=== PATIENT | female | born 1950 | race Two or more races ===

== ENCOUNTER → 2016-10-06 | Day surgery (SDC) | payer OTHER ==
[2016-10-05 12:41] LABS: Basophils # (auto) 0.1 uL; Basophils % (auto) 0.9 % (0.0-2.0); Eosinophils # (auto) 0.6 uL; Eosinophils % (auto) 6.1 % (0.0-7.0); Hematocrit 40.8 % (36.0-46.0); Hemoglobin 13.4 g/dL (12.2-16.2); Lymphocytes % (auto) 21.8 % (10.0-50.0); Mean Corpuscular Hemoglobin 30.1 pg (28.0-32.0); Mean Corpuscular Hgb Conc. 32.7 g/dL (32.0-36.0); Mean Corpuscular Volume 92.2 fL (80.0-100.0); Mean Platelet Volume 11.3 fL (7.4-10.4); Monocytes # (auto) 0.6 uL; Monocytes % (auto) 6.8 % (0.0-12.0); Neutrophils # (auto) 5.8 uL; Neutrophils % (auto) 64.4 % (37.0-80.0); Platelet Count (auto) 232 10^3/uL (140-450); Red Cell Distribution Width 13.3 % (11.6-16.0); White Blood Cell 9.1 10^3/uL (4.4-10.8)
[2016-10-05 12:57] LABS: INR 0.95 (0.9-1.15); Partial Thromboplastin Time 25.9 sec (22.64-33.71); Prothrombin Time 10.3 sec (9.37-12.3)
[2016-10-05 14:23] LABS: Albumin 3.4 g/dL (3.4-5.0); BUN/Creatinine Ratio 19.1; Bilirubin, Total 0.4 mg/dL (0.2-1.0); Calcium 9.2 mg/dL (8.5-10.1); Total Protein 7.5 g/dL (6.4-8.2)
[~2016-10-06] VITALS: Ht 160 cm; Wt 90.7 kg
[~2016-10-06] MED LIST: BUPIVACAINE 0.25% INJ 50ML VIAL ONE; BUPIVACAINE W/ EPINEPH 0.25% INJ 50ML MDV ONE; ESCI10TA PO; ESOM20CA PO; GLYCOPYRROLATE 0.2 MG/ML 1ML VIAL ONE; HYDROmorphone HCL 2 MG/ML VL IV PRN; KETOROLAC TROMETH 30 MG/ML 1ML VIAL IV ONE; LABETALOL HCL 5 MG/ML 4ML SYRINGE IV ONE; LIDOCAINE 1% HCL (LOCAL ANESTH.) INJ 20ML MDV ONE; LIDOCAINE W/ EPINEPHRINE 1 % INJ 30ML ONE; LISI-285 PO; MEPERIDINE HCL (50 MG/ML) 1 ML VIAL ONE; METOCLOPRAMIDE HCL 5MG/ml INJ 2ml VIAL IV ONE; MIDAZOLAM HCL 1MG/1ML-2 ML VIAL ONE; NEOSTIGMINE 1 MG/ML INJ (10mg/10ML VIAL) ONE; NIFE30TA76 PO; NOR5T PO; PROPOFOL 10 MG/ML 20 ML IV ONE; ROCURONIUM 10MG/ML 10ML VIAL IV ONE; SODIUM CHLORIDE LOCK 20 ML ONE; ceFAZolin 1GM/50ML D5W 100 ML IV ONE; fentaNYL CITRATE 100 MCG/2 ML VL ONE
[2016-10-06 14:30] VITALS: BP 137/71
== END | disposition home or self-care (01) ==
LOC: SUR 10:25
PROVIDERS: ATTEND Orthopaedic Surgery
DX: S42.291A Other displaced fracture of upper end of right humerus, initial encounter for closed fracture (principal); G58.8 Other specified mononeuropathies; E66.9 Obesity, unspecified; Z98.84 Bariatric surgery status; X58.XXXA Exposure to other specified factors, initial encounter; Y93.9 Activity, unspecified; Y92.9 Unspecified place or not applicable; Y99.9 Unspecified external cause status
CPT/HCPCS: 23605; 36415; 80053; 85025; 85610; 85730; 86850; 86900; 86901; J0690; J1885; J2175; J2250; J2704; J3010; 73030; 76000; J2001; J3490

== ENCOUNTER → 2016-11-04 | Outpatient (CLI) | payer OTHER ==
[~2016-11-04] MED LIST changes: -BUPIVACAINE 0.25% INJ 50ML VIAL ONE; -BUPIVACAINE W/ EPINEPH 0.25% INJ 50ML MDV ONE; -GLYCOPYRROLATE 0.2 MG/ML 1ML VIAL ONE; -HYDROmorphone HCL 2 MG/ML VL IV PRN; -KETOROLAC TROMETH 30 MG/ML 1ML VIAL IV ONE; -LABETALOL HCL 5 MG/ML 4ML SYRINGE IV ONE; -LIDOCAINE 1% HCL (LOCAL ANESTH.) INJ 20ML MDV ONE; -LIDOCAINE W/ EPINEPHRINE 1 % INJ 30ML ONE; -MEPERIDINE HCL (50 MG/ML) 1 ML VIAL ONE; -METOCLOPRAMIDE HCL 5MG/ml INJ 2ml VIAL IV ONE; -MIDAZOLAM HCL 1MG/1ML-2 ML VIAL ONE; -NEOSTIGMINE 1 MG/ML INJ (10mg/10ML VIAL) ONE; -PROPOFOL 10 MG/ML 20 ML IV ONE; -ROCURONIUM 10MG/ML 10ML VIAL IV ONE; -SODIUM CHLORIDE LOCK 20 ML ONE; -ceFAZolin 1GM/50ML D5W 100 ML IV ONE; -fentaNYL CITRATE 100 MCG/2 ML VL ONE
== END | disposition home or self-care (01) ==
LOC: LAB 10:55
PROVIDERS: ATTEND Internal Medicine Gastroenterology
DX: B18.2 Chronic viral hepatitis C (principal)
CPT/HCPCS: 87522

== ENCOUNTER → 2016-12-28 | Outpatient (CLI) | payer OTHER ==
[~2016-12-28] MED LIST changes: +HYDR-4663 PO; -NOR5T PO
[2016-12-28 11:24] LABS: Basophils # (auto) 0.1 uL; Basophils % (auto) 1.5 % (0.0-2.0); CONDITION Y; Eosinophils # (auto) 0.4 uL; Eosinophils % (auto) 4.5 % (0.0-7.0); Hematocrit 39.4 % (36.0-46.0); Hemoglobin 13.9 g/dL (12.2-16.2); Lymphocytes # (auto) 2.3 uL; Lymphocytes % (auto) 27.6 % (10.0-50.0); Mean Corpuscular Hemoglobin 31.7 pg (28.0-32.0); Mean Corpuscular Hgb Conc. 35.2 g/dL (32.0-36.0); Mean Corpuscular Volume 90.2 fL (80.0-100.0); Mean Platelet Volume 11.4 fL (7.4-10.4); Monocytes # (auto) 0.7 uL; Monocytes % (auto) 7.9 % (0.0-12.0); Neutrophils % (auto) 58.5 % (37.0-80.0); Platelet Count (auto) 230 10^3/uL (140-450); White Blood Cell 8.5 10^3/uL (4.4-10.8)
[2016-12-28 11:59] LABS: INR 0.98 (0.9-1.15); Partial Thromboplastin Time 26.7 sec (22.64-33.71); Prothrombin Time 10.7 sec (9.37-12.3)
== END | disposition home or self-care (01) ==
LOC: LAB 10:41
PROVIDERS: ATTEND Internal Medicine Gastroenterology
DX: B18.2 Chronic viral hepatitis C (principal)
CPT/HCPCS: 36415; 85025; 85610; 85730

== ENCOUNTER → 2016-12-31 | Outpatient (CLI) | payer OTHER ==
[2016-12-31 13:47] LABS: Albumin 3.8 g/dL (3.4-5.0); Calcium 9.1 mg/dL (8.5-10.1)
[2016-12-31 13:49] LABS: BUN/Creatinine Ratio 15.8; Bilirubin, Total 0.4 mg/dL (0.2-1.0); Total Protein 7.7 g/dL (6.4-8.2)
== END | disposition home or self-care (01) ==
LOC: LAB 13:13
PROVIDERS: ATTEND Internal Medicine Gastroenterology
DX: B18.2 Chronic viral hepatitis C (principal)
CPT/HCPCS: 36415; 80053

== ENCOUNTER → 2017-03-16 | Outpatient (CLI) | payer OTHER ==
[2017-03-16 11:23] LABS: Basophils # (auto) 0.1 uL; Basophils % (auto) 0.8 % (0.0-2.0); Eosinophils # (auto) 0.4 uL; Hematocrit 40.8 % (36.0-46.0); Lymphocytes # (auto) 1.8 uL; Lymphocytes % (auto) 17.7 % (10.0-50.0); Mean Corpuscular Hemoglobin 31.9 pg (28.0-32.0); Mean Corpuscular Hgb Conc. 34.4 g/dL (32.0-36.0); Mean Corpuscular Volume 92.7 fL (80.0-100.0); Mean Platelet Volume 9.9 fL (6.9-10.8); Monocytes # (auto) 0.9 uL; Monocytes % (auto) 8.6 % (0.0-12.0); Neutrophils % (auto) 68.9 % (37.0-80.0); Platelet Count (auto) 183 10^3/uL (140-450); Red Cell Distribution Width 13.6 % (11.8-14.3); White Blood Cell 10.2 10^3/uL (4.4-10.8)
[2017-03-16 11:44] LABS: Albumin 3.8 g/dL (3.4-5.0); BUN/Creatinine Ratio 15.6; Bilirubin, Total 0.7 mg/dL (0.2-1.0); Calcium 9.2 mg/dL (8.5-10.1); Potassium 3.9 mmol/L (3.5-5.1); Total Protein 7.9 g/dL (6.4-8.2)
== END | disposition home or self-care (01) ==
LOC: LAB 10:56
PROVIDERS: ATTEND Internal Medicine Gastroenterology
DX: B18.2 Chronic viral hepatitis C (principal)
CPT/HCPCS: 36415; 80053; 85025; 87522

== ENCOUNTER → 2017-07-13 | Outpatient (CLI) | payer OTHER ==
[~2017-07-13] MED LIST changes: -HYDR-4663 PO; +HYDR-4683 PO
[2017-07-13 11:23] LABS: Basophils # (auto) 0.1 uL; Basophils % (auto) 0.9 % (0.0-2.0); Eosinophils # (auto) 0.3 uL; Hematocrit 45.3 % (36.0-46.0); Hemoglobin 15.2 g/dL (12.2-16.2); Lymphocytes # (auto) 1.9 uL; Lymphocytes % (auto) 21.1 % (10.0-50.0); Mean Corpuscular Hemoglobin 32.7 pg (28.0-32.0); Mean Corpuscular Hgb Conc. 33.7 g/dL (32.0-36.0); Mean Corpuscular Volume 97.2 fL (80.0-100.0); Monocytes # (auto) 0.5 uL; Neutrophils # (auto) 6.2 uL; Platelet Count (auto) 183 10^3/uL (140-450); Red Blood Cells 4.66 10^6/uL (4.0-5.20); Red Cell Distribution Width 14.5 % (11.8-14.3)
[2017-07-13 11:50] LABS: Albumin 3.7 g/dL (3.4-5.0); BUN/Creatinine Ratio 14.1; Bilirubin, Total 0.6 mg/dL (0.2-1.0); Calcium 8.9 mg/dL (8.5-10.1); Potassium 4.1 mmol/L (3.5-5.1); Total Protein 7.6 g/dL (6.4-8.2)
== END | disposition home or self-care (01) ==
LOC: LAB 10:28
PROVIDERS: ATTEND Internal Medicine
DX: Z00.01 Encounter for general adult medical examination with abnormal findings (principal); Z12.11 Encounter for screening for malignant neoplasm of colon; I10 Essential (primary) hypertension; E78.5 Hyperlipidemia, unspecified
CPT/HCPCS: 36415; 80053; 80061; 82306; 84443; 85025

== ENCOUNTER → 2017-07-23 | Outpatient (CLI) | payer OTHER | END | disposition home or self-care (01) | LOC: LAB 06:58 | PROVIDERS: ATTEND Internal Medicine | DX: Z12.11 Encounter for screening for malignant neoplasm of colon (principal); I10 Essential (primary) hypertension; E78.5 Hyperlipidemia, unspecified | CPT/HCPCS: 82270 ==

== ENCOUNTER → 2017-08-18 | Outpatient (CLI) | payer OTHER | END | disposition home or self-care (01) | LOC: LAB 14:36 | PROVIDERS: ATTEND Internal Medicine | DX: K72.10 Chronic hepatic failure without coma (principal) | CPT/HCPCS: 82270 ==

== ENCOUNTER → 2017-09-30 | Outpatient (CLI) | payer OTHER | END | disposition home or self-care (01) | LOC: LAB 15:49 | PROVIDERS: ATTEND Internal Medicine Gastroenterology | DX: R10.9 Unspecified abdominal pain (principal); I10 Essential (primary) hypertension; E78.5 Hyperlipidemia, unspecified | CPT/HCPCS: 82784; 83516; 86255; 87522 ==

== ENCOUNTER → 2017-10-04 | Outpatient (CLI) | payer OTHER | END | disposition home or self-care (01) | LOC: LAB 12:34 | PROVIDERS: ATTEND Internal Medicine Gastroenterology | DX: R10.9 Unspecified abdominal pain (principal); E78.5 Hyperlipidemia, unspecified | CPT/HCPCS: 82705; 87045; 87493; 87899 ==

== ENCOUNTER → 2018-01-14 | Outpatient (CLI) | payer OTHER, MEDICARE | END | disposition home or self-care (01) | LOC: LAB 10:47 | PROVIDERS: ATTEND Internal Medicine | DX: Z12.11 Encounter for screening for malignant neoplasm of colon (principal); R73.01 Impaired fasting glucose; E56.9 Vitamin deficiency, unspecified; I10 Essential (primary) hypertension; E78.5 Hyperlipidemia, unspecified; Z88.5 Allergy status to narcotic agent; Z88.8 Allergy status to other drugs, medicaments and biological substances | CPT/HCPCS: 36415; 82607; 83036 ==

== ENCOUNTER 2018-10-05 08:31 | Day surgery (SDC) | payer OTHER, MEDICAID ==
[2018-10-04 09:10] LABS: Basophils # (auto) 0.1 uL; Basophils % (auto) 1.4 % (0.0-2.0); Eosinophils # (auto) 0.2 uL; Eosinophils % (auto) 1.7 % (0.0-7.0); Hematocrit 42.3 % (36.0-46.0); Hemoglobin 14.1 g/dL (12.2-16.2); Lymphocytes % (auto) 20.2 % (10.0-50.0); Mean Corpuscular Hemoglobin 33.1 pg (28.0-32.0); Mean Corpuscular Hgb Conc. 33.3 g/dL (32.0-36.0); Mean Corpuscular Volume 99.3 fL (80.0-100.0); Monocytes # (auto) 0.8 uL; Monocytes % (auto) 8.6 % (0.0-12.0); Neutrophils # (auto) 6.6 uL; Neutrophils % (auto) 68.1 % (37.0-80.0); Platelet Count (auto) 238 10^3/uL (140-450); Red Blood Cells 4.26 10^6/uL (4.0-5.20); Red Cell Distribution Width 14.3 % (11.8-14.3); White Blood Cell 9.7 10^3/uL (4.4-10.8)
[2018-10-04 09:32] LABS: Albumin 3.3 g/dL (3.4-5.0); Potassium 4.4 mmol/L (3.5-5.1)
[2018-10-04 09:36] LABS: BUN/Creatinine Ratio 10.2; Bilirubin, Total 0.6 mg/dL (0.2-1.0); Calcium 8.7 mg/dL (8.5-10.1); Total Protein 6.9 g/dL (6.4-8.2)
[2018-10-04 09:46] LABS: INR 1.01 (0.9-1.15); Partial Thromboplastin Time 22.4 sec (23.78-33.04); Prothrombin Time 10.2 sec (9.27-12.13)
[~2018-10-05] VITALS: Ht 160 cm; Wt 79.4 kg
[~2018-10-05 08:31] MED LIST changes: -ESOM20CA PO; -HYDR-4683 PO; +MELO1TAB73 PO; +TRAZ-181 PO
[2018-10-05] MEDS ORDERED: LIDOCAINE 2%HCL (LOCAL ANESTH.) INJ 20ML MDV ONE (10:44)
[2018-10-05] MEDS ORDERED: IOHEXOL 300 MG/ML 75ml BOTTLE ONE ×2 (10:44→10:55)
[2018-10-05] MEDS ORDERED: methylPREDNISolone SOD SUCC 125 MG/2 ML VL ONE (10:50)
[2018-10-05] MEDS ORDERED: diphenhdrAMINE HCL 50 MG/1 ML VL ONE (10:50)
[2018-10-05] MEDS ORDERED: ANGIOMAX 250 MG VIAL IV ONE (10:50)
[2018-10-05] MEDS ORDERED: MIDAZOLAM HCL 1MG/1ML-2 ML VIAL ONE (10:51)
[2018-10-05] MEDS ORDERED: SODIUM CHL 0.9% 50 ML ONE (10:51)
[2018-10-05] MEDS ORDERED: FAMOTIDINE (10MG/ML) 2ML VL IV ONE ×2 (10:51→11:00)
[2018-10-05] MEDS ORDERED: fentaNYL CITRATE 100 MCG/2 ML VL ONE (10:51)
== END 2018-10-05 14:00 | disposition home or self-care (01) ==
LOC: CATH 08:31
PROVIDERS: ATTEND Internal Medicine
DX: I25.10 Atherosclerotic heart disease of native coronary artery without angina pectoris (principal); I10 Essential (primary) hypertension; J43.9 Emphysema, unspecified; E78.5 Hyperlipidemia, unspecified; I25.2 Old myocardial infarction; Z88.5 Allergy status to narcotic agent; Z91.013 Allergy to seafood; Z91.041 Radiographic dye allergy status; Z79.82 Long term (current) use of aspirin; Z79.01 Long term (current) use of anticoagulants; Z79.899 Other long term (current) drug therapy; Z87.891 Personal history of nicotine dependence; Z82.49 Family history of ischemic heart disease and other diseases of the circulatory system
CPT/HCPCS: 36415; 80053; 85025; 85610; 85730; 93458; 93571; A6257; C1760; C1894; J0583; J1200; J1644; J2250; J2930; J3010; J3490; J7030; 99152; 99153

== ENCOUNTER → 2018-11-24 | Outpatient (CLI) | payer OTHER, MEDICAID ==
[~2018-11-24] MED LIST changes: +FAM20T PO; +LISI-275 PO; -LISI-285 PO; -MELO1TAB73 PO; -TRAZ-181 PO; +TRAZ50TA2 PO
[2018-11-24 12:34] LABS: Basophils # (auto) 0.1 uL; Basophils % (auto) 0.8 % (0.0-2.0); Eosinophils # (auto) 0.3 uL; Eosinophils % (auto) 2.1 % (0.0-7.0); Hematocrit 38.8 % (36.0-46.0); Lymphocytes # (auto) 2.5 uL; Lymphocytes % (auto) 17.5 % (10.0-50.0); Mean Corpuscular Hemoglobin 33.5 pg (28.0-32.0); Mean Corpuscular Hgb Conc. 33.5 g/dL (32.0-36.0); Monocytes # (auto) 1.1 uL; Monocytes % (auto) 7.6 % (0.0-12.0); Neutrophils # (auto) 10.1 uL; Nucleated Red Blood Cells % 0.1 %; Platelet Count (auto) 274 10^3/uL (140-450); Red Blood Cells 3.88 10^6/uL (4.0-5.20); Red Cell Distribution Width 13.8 % (11.8-14.3)
[2018-11-24 13:13] LABS: Albumin 3.1 g/dL (3.4-5.0); Calcium 8.9 mg/dL (8.5-10.1); Potassium 3.7 mmol/L (3.5-5.1)
[2018-11-24 13:16] LABS: BUN/Creatinine Ratio 7.2; Bilirubin, Total 0.5 mg/dL (0.2-1.0); Total Protein 6.9 g/dL (6.4-8.2)
[2018-11-24 22:40] LABS: Urine Bacteria FEW /hpf (None Seen); Urine Blood Negative /uL (Negative); Urine Hyaline Cast FEW /lpf (0 - 2); Urine Mucus FEW (None Seen); Urine Specific Gravity 1.012 (1.001-1.035); Urine WBC 13 /hpf (0 - 5)
== END | disposition home or self-care (01) ==
LOC: LAB 12:06
PROVIDERS: ATTEND Internal Medicine
DX: M54.9 Dorsalgia, unspecified (principal); I10 Essential (primary) hypertension
CPT/HCPCS: 36415; 80053; 81001; 85025

== ENCOUNTER → 2018-11-30 | Outpatient (CLI) | payer OTHER, MEDICAID ==
[2018-11-30 13:30] LABS: Basophils # (auto) 0.1 uL; Basophils % (auto) 0.6 % (0.0-2.0); Eosinophils # (auto) 0.4 uL; Hematocrit 39.2 % (36.0-46.0); Hemoglobin 12.7 g/dL (12.2-16.2); Lymphocytes # (auto) 2.1 uL; Lymphocytes % (auto) 17.4 % (10.0-50.0); Mean Corpuscular Hemoglobin 32.5 pg (28.0-32.0); Mean Corpuscular Hgb Conc. 32.4 g/dL (32.0-36.0); Mean Corpuscular Volume 100.4 fL (80.0-100.0); Monocytes # (auto) 0.7 uL; Neutrophils # (auto) 8.8 uL; Platelet Count (auto) 252 10^3/uL (140-450); Red Blood Cells 3.91 10^6/uL (4.0-5.20); White Blood Cell 12.1 10^3/uL (4.4-10.8)
[2018-11-30 14:06] LABS: Urine Bacteria NONE SEEN /hpf (None Seen); Urine Blood Negative /uL (Negative); Urine Hyaline Cast FEW /lpf (0 - 2); Urine WBC 1 /hpf (0 - 5)
[2018-11-30 14:24] LABS: Potassium 4.1 mmol/L (3.5-5.1)
[2018-11-30 14:32] LABS: BUN/Creatinine Ratio 6.7; Bilirubin, Total 0.5 mg/dL (0.2-1.0); Calcium 8.8 mg/dL (8.5-10.1); Total Protein 6.5 g/dL (6.4-8.2)
== END | disposition home or self-care (01) ==
LOC: LAB 13:00
PROVIDERS: ATTEND Internal Medicine
DX: N39.0 Urinary tract infection, site not specified (principal); R53.83 Other fatigue
CPT/HCPCS: 36415; 80053; 81001; 85025; 87086

== ENCOUNTER → 2018-12-08 | Outpatient (CLI) | payer OTHER, MEDICAID ==
[2018-12-08 14:24] LABS: Basophils # (auto) 0.1 uL; Eosinophils # (auto) 0.3 uL; Eosinophils % (auto) 2.8 % (0.0-7.0); Lymphocytes # (auto) 2.3 uL; Lymphocytes % (auto) 20.6 % (10.0-50.0); Mean Corpuscular Hemoglobin 33.5 pg (28.0-32.0); Mean Corpuscular Hgb Conc. 33.3 g/dL (32.0-36.0); Mean Corpuscular Volume 100.8 fL (80.0-100.0); Monocytes # (auto) 0.8 uL; Monocytes % (auto) 7.7 % (0.0-12.0); Neutrophils # (auto) 7.5 uL; Neutrophils % (auto) 67.9 % (37.0-80.0); Platelet Count (auto) 203 10^3/uL (140-450); Red Blood Cells 3.86 10^6/uL (4.0-5.20)
[2018-12-08 14:39] LABS: Alanine Aminotransferase 41 U/L (13-56); Aspartate Aminotransferase 49 U/L (15-37)
== END | disposition home or self-care (01) ==
LOC: LAB 14:00
PROVIDERS: ATTEND Internal Medicine
DX: D72.829 Elevated white blood cell count, unspecified (principal); R53.83 Other fatigue
CPT/HCPCS: 36415; 84450; 84460; 85025

== ENCOUNTER → 2018-12-09 | Outpatient (CLI) | payer OTHER, MEDICAID | END | disposition home or self-care (01) | LOC: LAB 13:17 | PROVIDERS: ATTEND Nurse Practitioner Family | DX: N39.0 Urinary tract infection, site not specified (principal) | CPT/HCPCS: 87086 ==

== ENCOUNTER 2019-01-18 16:27 | Emergency (ER) | payer OTHER ==
[~2019-01-18] VITALS: Ht 160 cm; Wt 79.4 kg
[~2019-01-18 16:27] MED LIST changes: +ATO40T PO; +NITR100C6 PO; +OMEP20TA PO; +TIOTCAP IN
[2019-01-18 17:32] LABS: Basophils # (auto) 0.1 uL; Basophils % (auto) 1.2 % (0.0-2.0); Eosinophils # (auto) 0.4 uL; Eosinophils % (auto) 3.6 % (0.0-7.0); Hematocrit 36.5 % (36.0-46.0); Hemoglobin 12.2 g/dL (12.2-16.2); Lymphocytes # (auto) 1.8 uL; Lymphocytes % (auto) 16.2 % (10.0-50.0); Mean Corpuscular Hemoglobin 33.8 pg (28.0-32.0); Mean Corpuscular Hgb Conc. 33.5 g/dL (32.0-36.0); Mean Corpuscular Volume 100.8 fL (80.0-100.0); Monocytes # (auto) 0.9 uL; Monocytes % (auto) 8.3 % (0.0-12.0); Neutrophils # (auto) 7.8 uL; Neutrophils % (auto) 70.7 % (37.0-80.0); Platelet Count (auto) 179 10^3/uL (140-450); Red Blood Cells 3.63 10^6/uL (4.0-5.20); Red Cell Distribution Width 14.3 % (11.8-14.3); White Blood Cell 11.1 10^3/uL (4.4-10.8)
[2019-01-18 17:41] LABS: BUN/Creatinine Ratio 6.1; Calcium 8.5 mg/dL (8.5-10.1); Magnesium 1.7 mg/dL (1.6-2.6)
[2019-01-18 17:46] LABS: Lactic Acid w/Reflex 2.2 mmol/L (0.4-2.0)
[2019-01-18 18:10] LABS: Bilirubin, Total 0.7 mg/dL (0.2-1.0); Total Protein 6.2 g/dL (6.4-8.2)
[2019-01-18 22:28] LABS: Urine Bacteria NONE SEEN /hpf (None Seen); Urine Blood Negative /uL (Negative); Urine Hyaline Cast FEW /lpf (0 - 2); Urine Specific Gravity 1.009 (1.001-1.035); Urine WBC 20 /hpf (0 - 5)
[2019-01-19 02:56] VITALS: BP 153/63
[2019-01-19] MEDS ORDERED: MORPHINE SULFATE 4 MG/ML SYR/VIAL IV ONE (04:15)
[2019-01-19] MEDS ORDERED: SODIUM CHLORIDE 0.9% 1,000 ML IV ONE (04:15)
[2019-01-19] MEDS ORDERED: ONDANSETRON HCL 4 MG/2 ML VIAL IV ONE (04:15)
[2019-01-19] MEDS ORDERED: cefTRIAXone 1GM/50ML D5W 50 ML IV ONE (05:00)
== END 2019-01-19 06:50 | disposition home or self-care (01) ==
LOC: ER 16:30
DX: R10.9 Unspecified abdominal pain (principal); J44.9 Chronic obstructive pulmonary disease, unspecified; M10.9 Gout, unspecified; E78.5 Hyperlipidemia, unspecified; I10 Essential (primary) hypertension; I25.2 Old myocardial infarction; Z90.49 Acquired absence of other specified parts of digestive tract; Z98.61 Coronary angioplasty status; Z88.5 Allergy status to narcotic agent; Z88.8 Allergy status to other drugs, medicaments and biological substances; Z91.013 Allergy to seafood; Z79.899 Other long term (current) drug therapy; Z98.890 Other specified postprocedural states
CPT/HCPCS: 36415; 74176; 80053; 81001; 83605; 83735; 84484; 85025; 87040; 93005; 96365; 96375; 99284; J0696; J2270; J2405; J7030

== ENCOUNTER → 2019-01-27 | Outpatient (CLI) | payer OTHER ==
[2019-01-27 15:00] LABS: Basophils # (auto) 0.1 uL; Basophils % (auto) 0.9 % (0.0-2.0); Eosinophils # (auto) 0.5 uL; Eosinophils % (auto) 5.4 % (0.0-7.0); Hematocrit 38.2 % (36.0-46.0); Hemoglobin 12.5 g/dL (12.2-16.2); Lymphocytes # (auto) 1.3 uL; Lymphocytes % (auto) 14.5 % (10.0-50.0); Mean Corpuscular Hemoglobin 32.8 pg (28.0-32.0); Mean Corpuscular Hgb Conc. 32.8 g/dL (32.0-36.0); Monocytes # (auto) 0.7 uL; Monocytes % (auto) 7.6 % (0.0-12.0); Neutrophils # (auto) 6.5 uL; Neutrophils % (auto) 71.6 % (37.0-80.0); Platelet Count (auto) 163 10^3/uL (140-450); Red Blood Cells 3.82 10^6/uL (4.0-5.20)
[2019-01-27 16:30] LABS: Urine Bacteria NONE SEEN /hpf (None Seen); Urine Blood Negative /uL (Negative); Urine Specific Gravity 1.016 (1.001-1.035); Urine WBC 24 /hpf (0 - 5)
== END | disposition home or self-care (01) ==
LOC: LAB 14:42
PROVIDERS: ATTEND Internal Medicine
DX: M25.50 Pain in unspecified joint (principal)
CPT/HCPCS: 36415; 81001; 84550; 85025; 85652; 86200; 86431

== ENCOUNTER 2019-04-26 12:20 | Inpatient (IN) | payer OTHER ==
[~2019-04-26] VITALS: Ht 160 cm; Wt 81.1 kg
[2019-04-26] MEDS ORDERED: SODIUM CHLORIDE 0.9% 1,000 ML IV ONE ×2 (13:32→16:45)
[2019-04-26 14:00] LABS: Hematocrit 39.9 % (36.0-46.0); Hemoglobin 13.6 g/dL (12.2-16.2); Mean Corpuscular Hemoglobin 33.2 pg (28.0-32.0); Mean Corpuscular Hgb Conc. 34.1 g/dL (32.0-36.0); Mean Corpuscular Volume 97.4 fL (80.0-100.0); Platelet Count (auto) 263 10^3/uL (140-450); Red Cell Distribution Width 14.6 % (11.8-14.3); White Blood Cell 11.4 10^3/uL (4.4-10.8)
[2019-04-26 14:25] LABS: Band Neutrophils % (manual) 0; Basophils % (manual) 0 (0.0-2.0); Blast Cells 0; Eosinophils % (manual) 0 (0-7); Metamyelocytes % 0; Myelocytes % 0; Promyelocytes % 0; Reactive Lymphocytes 0
[2019-04-26 14:29] LABS: Albumin 2.2 g/dL (3.4-5.0); Magnesium 1.9 mg/dL (1.6-2.6); Potassium 3.3 mmol/L (3.5-5.1)
[2019-04-26 14:31] LABS: BUN/Creatinine Ratio 12.7
[2019-04-26 14:46] LABS: Lymphocytes % (manual) 5 (10.0-50.0); Monocytes % (manual) 2 (0-12)
[2019-04-26 14:48] LABS: Bilirubin, Total 0.9 mg/dL (0.2-1.0); Total Protein 6.1 g/dL (6.4-8.2)
[2019-04-26] MEDS ORDERED: MORPHINE SULF INJ 2 MG/ML SYRINGE 1ML IV PRN (16:15)
[2019-04-26] MEDS ORDERED: POTASSIUM CHL 20MEQ/100ML 100 ML IV ONE (16:15)
[2019-04-26] MEDS ORDERED: NITROGLYCERIN 0.4 MG SL TAB SL PRN (16:15)
[2019-04-26] MEDS ORDERED: ACETAMINOPHEN 500 MG TAB PO PRN (16:15)
[2019-04-26] MEDS: ONDANSETRON HCL 4 MG/2 ML VIAL IV PRN (17:37)
[2019-04-26] MEDS: SOD CHL 0.9%/ KCL 20MEQ 1,000 ML IV SCH (17:48)
[2019-04-26 17:50] LABS: Lactic Acid w/Reflex 4.6 mmol/L (0.4-2.0)
[2019-04-26] MEDS ORDERED: NOREPINEPHRINE 8 MG/250ML KIT 250 ML IV ONE (18:37)
[2019-04-26] MEDS ORDERED: LEVOFLOXACIN 500MG 100 ML IV SCH (18:45)
[2019-04-26] MEDS ORDERED: metroNIDAZOLE 500MG/100ML 100 ML IV ONE (19:00)
[2019-04-26] MEDS: NOREPINEPHRINE 8 MG/250ML KIT 250 ML IV SCH (19:09)
[2019-04-27 01:29] LABS: Urine Bacteria FEW /hpf (None Seen); Urine Blood Negative /uL (Negative); Urine Hyaline Cast FEW /lpf (0 - 2); Urine Specific Gravity 1.005 (1.001-1.035); Urine WBC 14 /hpf (0 - 5)
[2019-04-27] MEDS: metroNIDAZOLE 500MG/100ML 100 ML IV SCH ×3 (02:42→18:10)
[2019-04-27] MEDS: SOD CHL 0.9%/ KCL 20MEQ 1,000 ML IV SCH (04:35)
[2019-04-27 06:25] LABS: Basophils # (auto) 0 uL; Eosinophils # (auto) 0.1 uL; Mean Corpuscular Hemoglobin 34.2 pg (28.0-32.0); White Blood Cell 9.3 10^3/uL (4.4-10.8)
[2019-04-27 06:29] LABS: Potassium 3.9 mmol/L (3.5-5.1)
[2019-04-27 06:30] LABS: Basophils % (auto) 0.5 % (0.0-2.0); Hematocrit 31.9 % (36.0-46.0); Hemoglobin 11.2 g/dL (12.2-16.2); Lymphocytes # (auto) 1.1 uL; Lymphocytes % (auto) 11.3 % (10.0-50.0); Mean Corpuscular Hgb Conc. 35.2 g/dL (32.0-36.0); Mean Corpuscular Volume 97.2 fL (80.0-100.0); Monocytes # (auto) 1.3 uL; Monocytes % (auto) 14.1 % (0.0-12.0); Neutrophils # (auto) 6.8 uL; Neutrophils % (auto) 73.1 % (37.0-80.0); Platelet Count (auto) 168 10^3/uL (140-450); Red Blood Cells 3.28 10^6/uL (4.0-5.20); Red Cell Distribution Width 14.6 % (11.8-14.3)
[2019-04-27 06:32] LABS: Albumin 1.7 g/dL (3.4-5.0); BUN/Creatinine Ratio 14.3; Calcium 7.3 mg/dL (8.5-10.1)
[2019-04-27 06:45] LABS: Bilirubin, Total 0.7 mg/dL (0.2-1.0); Total Protein 4.8 g/dL (6.4-8.2)
[2019-04-27] MEDS ORDERED: LEVOFLOXACIN 500MG 100 ML IV SCH (10:00)
[2019-04-27] MEDS: SODIUM CHLORIDE 0.9% 1,000 ML IV SCH ×2 (14:16→23:46)
[2019-04-27 16:56] VITALS: BP 123/66
--- NOTE | 2019-04-27 16:56 | NUR ---
Admit to [facility] admitted to [facility] via gurney on campus monitor, and portable 02. Patient transferred to bed, connected to unit monitoring and oxygen, and weighed by bed scale. Patient oriented to Zoey Hirsch, primary RN, unit, room, bed, and unit policies regarding patient care and visiting hours. All questions and concerns addressed, patient verbalized understanding.
--- NOTE | 2019-04-27 17:00 | NUR ---
IV removal IV DC'd right AC with clean sterile technique, catheter fully intact. Pressure dressing applied to site. Patient tolerated well.
[2019-04-27] MEDS: NOREPINEPHRINE 8 MG/250ML KIT 250 ML IV SCH (18:45)
[2019-04-27] MEDS ORDERED: ESCI10TA53 PO (18:46)
[2019-04-27] MEDS ORDERED: CAR3125T PO (18:46)
[2019-04-27] MEDS ORDERED: NITR50CA PO (18:46)
[2019-04-27] MEDS ORDERED: ASPI325T4 PO (18:46)
[2019-04-27] MEDS ORDERED: LISI-275 PO (18:46)
[2019-04-27] MEDS ORDERED: FAM20T PO (18:46)
[2019-04-27] MEDS ORDERED: CLOP75TA41 PO (18:46)
[2019-04-27] MEDS ORDERED: TIOTCAP IN (18:46)
[2019-04-27] MEDS ORDERED: PANT1INJ3 PO (18:46)
[2019-04-27] MEDS ORDERED: OMEP20TA PO (18:46)
[2019-04-27] MEDS ORDERED: ATOR40TA52 PO (18:46)
[2019-04-27] MEDS ORDERED: TRAZ50TA2 PO (18:46)
--- NOTE | 2019-04-27 19:38 | NUR ---
DR. SALAZAR AT BEDSIDE ASSESSING PATIENT. ORDERS OBTAINED FOR AN INTERVENTION RADIOLOGY CONSULT FOR A LUNG BIOPSY
[2019-04-27 20:00] VITALS: BP 134/76
[2019-04-27] MEDS: LEVOFLOXACIN 250MG 50 ML IV SCH (20:34)
[2019-04-28] VITALS: BP 135/63
[2019-04-28] MEDS: metroNIDAZOLE 500MG/100ML 100 ML IV SCH ×3 (02:00→17:59)
[2019-04-28 04:00] VITALS: BP 114/61
--- NOTE | 2019-04-28 06:25 | NUR ---
IV insertion IV access obtained, via clean sterile technique by inserting [22] gauge catheter at [RIGHT FOREARM] after [1] attempt(s). IV secured properly. No trauma to site. Patient tolerated well. NOTE: IV TO THE LEFT HAND WAS LEAKING AND REMOVED.
--- NOTE | 2019-04-28 06:30 | NUR ---
MORNING HYGIENE CARE PARTIAL LINEN CHANGE PERFORMED. PATIENT REFUSED BATH FOR NOW. PATIENT IS USING SHAMPOO CAP TO WASH HAIR. REPOSITIONED FOR COMFORT. TOLERATED IT WELL.
--- NOTE | 2019-04-28 07:15 | NUR ---
END OF SHIFT REPORT GIVEN AND CARE ENDORSED TO CARLOS IQBAL
--- NOTE | 2019-04-28 07:30 | NUR ---
RECEIVED PATIENT SEMI FOWLERS IN BED, O2 AT 2L BY N/C, A/O TIMES 4 TO NAME BEING CALLED, DENIES PAIN, SIMPSON TO GRAVITY, NS INFUSING INTO THE RFA 22G AT 100ML/HR BY THE IV PUMP
[2019-04-28 08:00] VITALS: BP 121/63
--- NOTE | 2019-04-28 08:25 | NUR ---
SITTING UP IN BED EATING HER BREAKFAST NO HELP NEEDED
--- NOTE | 2019-04-28 09:15 | NUR ---
HAD LIQUID BM IN THE BEDPAN AND SPECIMEN SENT TOT HE LAB
[2019-04-28] MEDS: ONDANSETRON HCL 4 MG/2 ML VIAL IV PRN (09:53)
--- NOTE | 2019-04-28 10:01 | NUR ---
DISCUSSED MEDICATIONS WITH THE PATIENT REGARDING THE DOSAGE,USAGE, AND THE SIDE EFFECTS, VERBALIZED THAT SHEUNDESTOOD AND MEDS GIVEN ORDERED, ALSO GAVE ZOFRAN FOR NAUSEA
--- NOTE | 2019-04-28 10:46 | NUR ---
PATIENT LYING IN BED, WITH EYES CLOSED STATES SHE IS DOING BETTER
--- NOTE | 2019-04-28 11:22 | NUR ---
SITTING UP IN THE BED TALKING ON THE PHONE
--- NOTE | 2019-04-28 11:42 | NUR ---
RADIOLOGY NURSE IN TALKING TO THE PATIENT ABOUT HAVING A BIOPSY OF THE NODULE IN HER LUNG
[2019-04-28] MEDS ORDERED: fentaNYL CITRATE 100 MCG/2 ML VL IV ONE (11:45)
[2019-04-28] MEDS ORDERED: MIDAZOLAM HCL 1MG/1ML-2 ML VIAL IV ONE (11:45)
--- NOTE | 2019-04-28 11:51 | NUR ---
PER DR CUELLAR BECAUSE THE PATIENT TAKES PLAVIX AT HOME, HE WILL NOT DO THE BIOPSY UNTIL WEDNESDAY, PATIENT HAS BEEN OFF PLAVIX FOR ONLY 2 DAYS
--- NOTE | 2019-04-28 11:56 | NUR ---
DR VELAZQUEZ HERE TO EVALUATE PATIENT
[2019-04-28 12:00] VITALS: BP 126/66
--- NOTE | 2019-04-28 12:08 | NUR ---
Nutrition Assessment/consult Notes please see attached link for complete assessment Est. Needs ABW [id number] kcal (23-25 kcal/kgBW), 66-72 gms pro (1.0-1.1 gms/kgBW r/t elev creat severe hypoalb). Will continue to monitor pertinent labs and reassess nutrient need prn Addendum: 04/28/19 at [address] Amended: Links added.
[2019-04-28 12:18] LABS: INR 1.14 (0.9-1.15)
--- NOTE | 2019-04-28 12:22 | NUR ---
PER DR VELAZQUEZ HE WILL MONITOR THE PATIENT AT THIS TIME
--- NOTE | 2019-04-28 12:51 | NUR ---
SITTING UP IN THE BED EATING HER LUNCH NO HELP NEEDED
--- NOTE | 2019-04-28 13:40 | NUR ---
DR MORENO INTO SEE THE PATIENT AND WROTE TO TRANSFER TO TELE STATUS ROOM 202
--- NOTE | 2019-04-28 14:02 | NUR ---
assessment re: ss consult lives alone, 4 falls at home Patient is a 69 year old female who is alert and oriented. Patients cognitive abilities are intact. Prior to admission patient lived home alone and functioned independently. Patient informed me she is able to care for her own ADLs. Per patient she will return home to her prior living arrangements post discharge. Patient informed me she may need help on discharge since she has been feeling weak and falling. I informed patient we would do a physical therapy evaluation to see where she is at and what she may need. Patient agreed. I also provided patient with [facility] and private pay caregiver resources. Patient accepted. Patient informed me her PCP is Dr Gaines. Patient informed me her niece helps her with shopping and cleaning. Patient informed me she feels safe returning home on discharge. I informed patient she has a right to speak to a case management social worker regarding all care. I informed patient she has a right to participate in any and all discharge planning. Patient has a POA and advanced directive. Patient verbalized understanding and agreed to discharge plan. Addendum: 04/28/19 at 1410 by Jacqueline HOUSE Amended: Links added.
--- NOTE | 2019-04-28 14:29 | NUR ---
SITTING UP IN THE BED WITH EYE CLOSED PLACED ON TELE 32 GOING TO ROOM 202 WITH NURSE RANDEE IQBAL
--- NOTE | 2019-04-28 14:39 | NUR ---
SIMPSON REMOVED INTACT
--- NOTE | 2019-04-28 15:10 | NUR ---
Assumed care of patient awake and alert. Respirations even and unlabored. No S/S of distress. Fall precautions in place, bed in lowest position, breaks locked, side rails up x2, bed alarm on, call light with in reach. Patient informed to call as need. Will continue to monitor q 1HR and PRN. V/S 130/81 bp 84 hr 20rr, 97% on RA, temp oral 97.9 f
--- NOTE | 2019-04-28 15:11 | NUR ---
PATIENT TRANSFERRED TO ROOM 202 BY THE BED WITH ALL BELONGINGS INCLUDING CELL PHONE
[2019-04-28 16:36] VITALS: BP 130/81
[2019-04-28 21:29] VITALS: BP 139/70
[2019-04-28] MEDS: LEVOFLOXACIN 250MG 50 ML IV SCH (21:32)
[2019-04-28] MEDS: PANTOPRAZOLE 40 MG TAB PO SCH (21:33)
[2019-04-28] MEDS: HYDROcodone-ACET 5/325MG TAB PO PRN (21:33)
[2019-04-29] MEDS: metroNIDAZOLE 500MG/100ML 100 ML IV SCH ×3 (03:05→18:09)
[2019-04-29] MEDS: HYDROcodone-ACET 5/325MG TAB PO PRN ×3 (03:06→22:24)
[2019-04-29 04:33] VITALS: BP 122/80
[2019-04-29 05:24] LABS: % Iron Saturation 47.6 % (15-50)
--- NOTE | 2019-04-29 08:00 | NUR ---
OOB,AMBULATED AND ASSISTED TO RESTROOM,GAIT STEADY
[2019-04-29 09:00] VITALS: BP 137/73
[2019-04-29] MEDS: PANTOPRAZOLE 40 MG TAB PO SCH ×2 (09:44→22:24)
[2019-04-29] MEDS ORDERED: CLOPIDOGREL BISULFATE 75 MG TAB PO SCH (10:00)
[2019-04-29 11:09] LABS: Basophils # (auto) 0 uL; Basophils % (auto) 0.2 % (0.0-2.0); Eosinophils # (auto) 0.2 uL; Hematocrit 32.5 % (36.0-46.0); Hemoglobin 10.9 g/dL (12.2-16.2); Lymphocytes # (auto) 1.1 uL; Lymphocytes % (auto) 20.4 % (10.0-50.0); Mean Corpuscular Hemoglobin 33.9 pg (28.0-32.0); Mean Corpuscular Hgb Conc. 33.5 g/dL (32.0-36.0); Monocytes # (auto) 0.8 uL; Monocytes % (auto) 14.2 % (0.0-12.0); Neutrophils # (auto) 3.3 uL; Neutrophils % (auto) 62.2 % (37.0-80.0); Nucleated Red Blood Cells % 0.1 %; Platelet Count (auto) 129 10^3/uL (140-450); Red Blood Cells 3.22 10^6/uL (4.0-5.20); Red Cell Distribution Width 14.8 % (11.8-14.3); White Blood Cell 5.4 10^3/uL (4.4-10.8)
--- NOTE | 2019-04-29 11:39 | NUR ---
AT BEDSIDE DR. SALAZAR AT BEDSIDE TO EXAMINE PT AND UPDATE PLAN OF CARE. NO NEW ORDERS RECEIVED AT THIS TIME.
--- NOTE | 2019-04-29 12:55 | NUR ---
AT BEDSIDE DR. CORDOBA AT BEDSIDE TO EXAMINE PATIENT AND UPDATED ON PLAN OF CARE. CDIFF RESULT IS POSITIVE. DR. CORDOBA ORDERED TO CALL PHARMACY TO SEE WHICH MEDICATION WOULD BE MORE EFFECTIVE FOR TREATING C DIFF, FLAGYL OR VANCOMYCIN. PER PHARMACY CONTINUE IV FLAGYL.
--- NOTE | 2019-04-29 12:55 | NUR ---
FAX REQUEST SENT FAX REQUEST FOR RELEASE OF PET SCAN INFORMATION TO [facility].
[2019-04-29 13:00] VITALS: BP 113/68
--- NOTE | 2019-04-29 14:30 | NUR ---
C DIFF RECEIVED RESULTS FROM STOOL SAMPLE: POSITIVE FOR CDIFF. CONTACT PRECAUTIONS INITIATED. ISOLATION NETWORK CABLE INSTALLER AT BEDSIDE.
--- NOTE | 2019-04-29 16:55 | NUR ---
CARDIOLOGY AT BEDSIDE DR. NYE AT BEDSIDE TO EXAMINE PT AND UPDATE ON PLAN OF CARE. NEW ORDERS RECEIVED, NOTED IN CHART. CONTINUE PLAVIX AND ASPIRIN DAILY AFTER LOADING DOSE HAS BEEN GIVEN.
[2019-04-29 17:00] VITALS: BP 124/64
[2019-04-29] MEDS ORDERED: CLOPIDOGREL 300 MG TAB PO ONE (17:30)
[2019-04-29] MEDS ORDERED: ASPirin 325 MG TAB PO ONE (17:30)
[2019-04-29] MEDS: Ensure HIGH Protein Chocolate 8oz Bottle PO SCH (18:12)
--- NOTE | 2019-04-29 20:00 | NUR ---
OPENING SHIFT NOTE Pt is sitting up awake, alert, and oriented. Pt shows no S/S of distress, pain, or SOB. Pt included in discussion of POC. Bed is locked and in the lowest position. Bed rails are up x2 and bed alarm has been set. Call light is within reach and Pt has been instructed to notify nurse when needed.
[2019-04-29] MEDS: LEVOFLOXACIN 250MG 50 ML IV SCH (20:26)
[2019-04-29 21:05] VITALS: BP 128/69
[2019-04-30] MEDS: metroNIDAZOLE 500MG/100ML 100 ML IV SCH ×3 (02:41→18:01)
[2019-04-30] MEDS: HYDROcodone-ACET 5/325MG TAB PO PRN ×2 (03:58→11:06)
[2019-04-30 04:45] VITALS: BP 130/69
[2019-04-30 06:44] LABS: Basophils # (auto) 0.1 uL; Basophils % (auto) 1.1 % (0.0-2.0); Eosinophils # (auto) 0.2 uL; Eosinophils % (auto) 2.9 % (0.0-7.0); Lymphocytes # (auto) 0.9 uL; Lymphocytes % (auto) 16.5 % (10.0-50.0); Mean Corpuscular Hemoglobin 33.6 pg (28.0-32.0); Mean Corpuscular Hgb Conc. 34.2 g/dL (32.0-36.0); Mean Corpuscular Volume 98.1 fL (80.0-100.0); Monocytes # (auto) 0.7 uL; Monocytes % (auto) 13.8 % (0.0-12.0); Neutrophils # (auto) 3.4 uL; Neutrophils % (auto) 65.7 % (37.0-80.0); Nucleated Red Blood Cells % 0.1 %; Platelet Count (auto) 132 10^3/uL (140-450); Red Blood Cells 3.27 10^6/uL (4.0-5.20); Red Cell Distribution Width 14.6 % (11.8-14.3); White Blood Cell 5.3 10^3/uL (4.4-10.8)
[2019-04-30] MEDS: ONDANSETRON HCL 4 MG/2 ML VIAL IV PRN ×2 (06:47→19:56)
[2019-04-30 07:01] LABS: Calcium 7.5 mg/dL (8.5-10.1); Potassium 3.6 mmol/L (3.5-5.1)
[2019-04-30 07:03] LABS: BUN/Creatinine Ratio 7.8
--- NOTE | 2019-04-30 07:30 | NUR ---
Opening Shift Note Assumed care of patient, awake and alert. No S/S of distress/SOB or pain. Instructed on POC and to call for assist PRN, will continue to monitor for changes Q1hr and PRN. Fall precautions in place per safety protocol.
[2019-04-30] MEDS: Ensure HIGH Protein Chocolate 8oz Bottle PO SCH ×3 (08:06→18:01)
[2019-04-30 09:00] VITALS: BP 127/66
--- NOTE | 2019-04-30 09:10 | NUR ---
Hospitalist at bedside MD. Gaines at bedside, aware of patient status. No new orders at this time. Possible D/C tomorrow 05/01. Will cont to monitor patient.
[2019-04-30] MEDS: ASPirin 81 mg TAB PO SCH (10:39)
[2019-04-30] MEDS: CLOPIDOGREL BISULFATE 75 MG TAB PO SCH (10:39)
[2019-04-30] MEDS: PANTOPRAZOLE 40 MG TAB PO SCH ×2 (10:39→21:15)
[2019-04-30] MEDS ORDERED: LEVOFLOXACIN 500MG 100 ML IV SCH ×2 (11:04→12:00)
[2019-04-30 13:00] VITALS: BP 119/61
[2019-04-30 17:00] VITALS: BP 115/59
--- NOTE | 2019-04-30 19:14 | NUR ---
Endorsed Care Patient care endorsed to Raul IQBAL. Patient shows no signs of distress, sob, or pain at this time.
--- NOTE | 2019-04-30 20:00 | NUR ---
Opening Shift Note Assumed care of patient, awake and alert. No S/S of distress/SOB or pain. Instructed on POC and to call for assist PRN, will continue to monitor for changes Q1hr and PRN.
[2019-04-30 22:05] VITALS: BP 120/63
[2019-05-01] MEDS: metroNIDAZOLE 500MG/100ML 100 ML IV SCH ×3 (01:37→18:12)
[2019-05-01] MEDS: ONDANSETRON HCL 4 MG/2 ML VIAL IV PRN ×2 (04:35→11:02)
--- NOTE | 2019-05-01 05:00 | NUR ---
DIET CHANGED DUE TO PATIENT NOT HAVING CARDIAC CLEARANCE FOR EGD. REQUESTING FROM MD TO PLACE PATIENT BACK ON TO REGULAR DIET. ORDERS RECEIVED. WILL IMPLEMENT AT THIS TIME.
[2019-05-01 05:09] VITALS: BP 133/74
--- NOTE | 2019-05-01 07:33 | NUR ---
Opening Shift Note Assumed care of patient, awake and alert. No S/S of distress/SOB. Pt denies having any pain at this time. Bed in lowest and locked position with side rails upx2 and call light in reach. Instructed on POC and to call for assist PRN, will continue to monitor for changes Q1hr and PRN.
[2019-05-01] MEDS ORDERED: diphenhdrAMINE HCL 50 MG/1 ML VL ONE (08:14)
[2019-05-01] MEDS ORDERED: MIDAZOLAM HCL 5 MG/ML-1ML VIAL ONE (08:14)
[2019-05-01] MEDS ORDERED: SODIUM CHLORIDE LOCK 10 ML ONE (08:14)
[2019-05-01] MEDS ORDERED: fentaNYL CITRATE 100 MCG/2 ML VL ONE (08:14)
[2019-05-01] MEDS: Ensure HIGH Protein Chocolate 8oz Bottle PO SCH ×3 (08:26→18:13)
[2019-05-01 08:27] LABS: Ferritin 110.8 ng/mL (10-322)
[2019-05-01 08:29] LABS: Folate (Folic Acid) 5.22 ng/mL (5.38-24)
[2019-05-01 09:00] VITALS: BP 121/78
[2019-05-01] MEDS ORDERED: LEVOFLOXACIN 500MG 100 ML IV SCH ×3 (09:00→14:00)
[2019-05-01] MEDS: ASPirin 81 mg TAB PO SCH (11:01)
[2019-05-01] MEDS: CLOPIDOGREL BISULFATE 75 MG TAB PO SCH (11:01)
[2019-05-01] MEDS: PANTOPRAZOLE 40 MG TAB PO SCH (11:01)
[2019-05-01] MEDS: VANCOMYCIN HCL 125MG/5ML ORAL SOL PO SCH ×3 (12:29→22:20)
[2019-05-01 13:00] VITALS: BP 130/53
--- NOTE | 2019-05-01 14:40 | NUR ---
IV insertion IV access obtained, via clean sterile technique by inserting 20 gauge catheter at RIGHT AC after 1 attempt(s). IV secured properly. No trauma to site. Patient tolerated well.
--- NOTE | 2019-05-01 15:40 | NUR ---
IV removal left wrist IV DC'd with clean sterile technique, catheter fully intact. Pressure dressing applied to site. Patient tolerated well.
[2019-05-01 17:00] VITALS: BP_SYST 115; BP_SYST 130; BP_DIAS 58; BP_DIAS 65
[2019-05-01] MEDS ORDERED: CYANOCOBALAMIN (B-12) 1000 MCG/1 ML VIAL SUBCUT ONE (17:00)
[2019-05-01] MEDS ORDERED: FOLIC ACID 1 MG in D5W 5% 50 ML IV ONE (17:00)
--- NOTE | 2019-05-01 20:00 | NUR ---
RECIVE IN BED WATCHING TV CONTACT ISOLATION MAINTAINED
[2019-05-01] MEDS: IPRATROPIUM BROM 0.5 MG/2.5ML INH SOL NEB SCH (20:32)
[2019-05-01 21:16] VITALS: BP 126/67
[2019-05-01 22:00] VITALS: BP 126/67
[2019-05-02] MEDS: metroNIDAZOLE 500MG/100ML 100 ML IV SCH ×2 (02:04→09:54)
[2019-05-02 05:32] VITALS: BP 113/73
[2019-05-02] MEDS: VANCOMYCIN HCL 125MG/5ML ORAL SOL PO SCH ×2 (06:12→12:18)
[2019-05-02] MEDS: IPRATROPIUM BROM 0.5 MG/2.5ML INH SOL NEB SCH ×3 (06:20→11:33)
--- NOTE | 2019-05-02 07:03 | NUR ---
Opening Shift notes Assumed care of patient from shift boss nurse. Patient is alert and orientedx4, no signs of distress noted. Patient was updated on the plan of care and verbalizes understanding. Bed in the lowest position, side rails upx2, call light in reach. Patient encouraged to call for assistance.
[2019-05-02] MEDS: Ensure HIGH Protein Chocolate 8oz Bottle PO SCH ×2 (08:00→12:00)
[2019-05-02] MEDS: ONDANSETRON HCL 4 MG/2 ML VIAL IV PRN (08:52)
[2019-05-02 09:46] VITALS: BP 115/57
[2019-05-02] MEDS: ASPirin 81 mg TAB PO SCH (09:54)
[2019-05-02] MEDS: CLOPIDOGREL BISULFATE 75 MG TAB PO SCH (09:55)
[2019-05-02] MEDS: PANTOPRAZOLE 40 MG TAB PO SCH (09:55)
[2019-05-02] MEDS ORDERED: FOLIC ACID 1 MG in D5W 5% 50 ML IV SCH (10:00)
--- NOTE | 2019-05-02 11:57 | NUR ---
Dr Lanza paged Dr. lanza paged, new orders received and carried out
--- NOTE | 2019-05-02 12:04 | NUR ---
Nutrition Follow-up Notes Wt.: 81.1 kg Pt was sleeping with no family by bedside. per records pt with anemia, s/p GI workup. pt with no distress noted currently on regular diet with ensure HP TID with adequate PO of 75% x4 per RN doc Est. Needs ABW [id number] kcal (23-25 kcal/kgBW), 66-72 gms pro (1.0-1.1 gms/kgBW r/t elev creat severe hypoalb). Will continue to monitor pertinent labs and reassess nutrient need prn Labs: CA 7.5 L. Skin: Aristeo scale 18, mod skin intact per rn doc GI: Pt had 1 BM today per chief estimator. PES: Altered nutrition related lab values r/t current/chronic medical condition aeb elev creat, severe hypoalb hypocalcemia Decreased nutrient needs rt adiposity aeb pt`s high BMI of 31.5 kgm2 Will continue to monitor PO intake, skin status, pertinent labs and weight trend. F/u in 3-5 days. Rec.: 1.) refer to [facility] dietitian on DC.2) continue current plan of care
[2019-05-02] MEDS ORDERED: VANC125PO PO (12:48)
[2019-05-02 14:12] VITALS: BP 127/68
[2019-05-02 15:57] VITALS: BP 127/68
--- NOTE | 2019-05-02 16:45 | NUR ---
Discharge Discharge instructions given as ordered. Encourage to follow up with PMD as instructed. All questions and concerns addressed. Patient verbalized understanding. Medication reconciliation form completed and copy given to patient. IV removed with catheter intact, pressure dressing applied Patient tolerated well. Telemetry unit returned to ICU. Patient taken to vehicle via wheelchair with all personal belongings, accompanied by staff and family member. No distress noted at time of departure.
== END 2019-05-02 16:45 | disposition home or self-care (01) | DRG 371 ==
LOC: ER 12:20 → MERGE 12:21 → TELE 12:21 → ICU CENTRL 04-27 17:27 → DOU IN ICU 04-27 17:39 → TELE-CENTR 04-28 15:14
PROVIDERS: ADMIT Nurse Practitioner Acute Care; ATTEND Internal Medicine
DX: A04.72 Enterocolitis due to Clostridium difficile, not specified as recurrent (principal); R57.1 Hypovolemic shock; N17.0 Acute kidney failure with tubular necrosis; E43 Unspecified severe protein-calorie malnutrition; E87.1 Hypo-osmolality and hyponatremia; N39.0 Urinary tract infection, site not specified; E87.2 Acidosis; I95.9 Hypotension, unspecified; E87.6 Hypokalemia; E87.8 Other disorders of electrolyte and fluid balance, not elsewhere classified; R91.1 Solitary pulmonary nodule; I25.10 Atherosclerotic heart disease of native coronary artery without angina pectoris; E66.9 Obesity, unspecified; D64.9 Anemia, unspecified; E78.5 Hyperlipidemia, unspecified; K29.00 Acute gastritis without bleeding; I12.9 Hypertensive chronic kidney disease with stage 1 through stage 4 chronic kidney disease, or unspecified chronic kidney disease; J44.9 Chronic obstructive pulmonary disease, unspecified; N18.9 Chronic kidney disease, unspecified; E53.8 Deficiency of other specified B group vitamins; Z68.31 Body mass index [BMI] 31.0-31.9, adult; Z98.84 Bariatric surgery status; Z88.8 Allergy status to other drugs, medicaments and biological substances; I25.2 Old myocardial infarction; Z91.041 Radiographic dye allergy status; Z88.5 Allergy status to narcotic agent; Z91.013 Allergy to seafood; Z74.01 Bed confinement status; Z79.82 Long term (current) use of aspirin; Z79.02 Long term (current) use of antithrombotics/antiplatelets; Z79.899 Other long term (current) drug therapy; Z82.3 Family history of stroke; Z82.49 Family history of ischemic heart disease and other diseases of the circulatory system; Z87.440 Personal history of urinary (tract) infections; Z87.891 Personal history of nicotine dependence; Z90.49 Acquired absence of other specified parts of digestive tract; Z95.5 Presence of coronary angioplasty implant and graft
CPT/HCPCS: 36415; 70450; 71045; 71250; 74176; 78582; 80048; 80053; 81001; 82565; 82607; 82728; 82746; 83540; 83550; 83605; 83735; 84484; 85007; 85025; 85027; 85610; 87040; 87045; 87081; 87086; 87427; 87493; 93005; 94640; 97116; 97163; 97530; 99291; G0378; J1956; J2250; J2405; J3480; J3490; J7060

== ENCOUNTER → 2019-05-22 | Outpatient (CLI) | payer OTHER ==
[~2019-05-22] MED LIST changes: +ASPI325T4 PO; +ATOR40TA52 PO; +CAR3125T PO; +CLOP75TA41 PO; +ESCI10TA53 PO; +NITR50CA PO; +PANT1INJ3 PO; +VANC125PO PO
== END | disposition home or self-care (01) ==
LOC: LAB 10:39
PROVIDERS: ATTEND Urology
DX: N39.0 Urinary tract infection, site not specified (principal)
CPT/HCPCS: 87086

== ENCOUNTER → 2019-06-09 | Outpatient (CLI) | payer OTHER ==
[~2019-06-09] MED LIST changes: +NITR1CAP23 PO; -NITR50CA PO
[2019-06-09 15:56] LABS: Basophils # (auto) 0.1 uL; Eosinophils # (auto) 0.3 uL; Hemoglobin 12.4 g/dL (12.2-16.2); Lymphocytes # (auto) 1.7 uL; Neutrophils # (auto) 4.2 uL
[2019-06-09 15:59] LABS: Basophils % (auto) 0.9 % (0.0-2.0); Eosinophils % (auto) 3.8 % (0.0-7.0); Hematocrit 36.7 % (36.0-46.0); Lymphocytes % (auto) 24.8 % (10.0-50.0); Mean Corpuscular Hemoglobin 33.9 pg (28.0-32.0); Mean Corpuscular Hgb Conc. 33.8 g/dL (32.0-36.0); Mean Corpuscular Volume 100.3 fL (80.0-100.0); Monocytes # (auto) 0.6 uL; Monocytes % (auto) 8.2 % (0.0-12.0); Neutrophils % (auto) 62.3 % (37.0-80.0); Nucleated Red Blood Cells % 0.1 %; Platelet Count (auto) 149 10^3/uL (140-450); Red Blood Cells 3.66 10^6/uL (4.0-5.20); Red Cell Distribution Width 13.8 % (11.8-14.3); White Blood Cell 6.8 10^3/uL (4.4-10.8)
[2019-06-09 21:17] LABS: Albumin 2.3 g/dL (3.4-5.0); Calcium 8.5 mg/dL (8.5-10.1)
[2019-06-09 21:20] LABS: BUN/Creatinine Ratio 10.3; Bilirubin, Total 0.7 mg/dL (0.2-1.0)
== END | disposition home or self-care (01) ==
LOC: LAB 15:40
PROVIDERS: ATTEND Internal Medicine
DX: D69.6 Thrombocytopenia, unspecified (principal); K76.9 Liver disease, unspecified; R30.0 Dysuria; D64.9 Anemia, unspecified
CPT/HCPCS: 36415; 80053; 85025

== ENCOUNTER → 2019-07-19 | Outpatient (CLI) | payer OTHER ==
[~2019-07-19] MED LIST changes: +NIFE1TAB31 PO; -NIFE30TA76 PO
[2019-07-19 14:47] LABS: Basophils # (auto) 0 uL; Basophils % (auto) 0.4 % (0.0-2.0); Eosinophils # (auto) 0.1 uL; Eosinophils % (auto) 1.7 % (0.0-7.0); Hematocrit 35.1 % (36.0-46.0); Hemoglobin 11.8 g/dL (12.2-16.2); Lymphocytes # (auto) 1.8 uL; Lymphocytes % (auto) 23.9 % (10.0-50.0); Mean Corpuscular Hemoglobin 33.8 pg (28.0-32.0); Mean Corpuscular Hgb Conc. 33.8 g/dL (32.0-36.0); Mean Corpuscular Volume 100.2 fL (80.0-100.0); Monocytes # (auto) 0.7 uL; Monocytes % (auto) 9.2 % (0.0-12.0); Neutrophils # (auto) 4.8 uL; Neutrophils % (auto) 64.8 % (37.0-80.0); Platelet Count (auto) 171 10^3/uL (140-450); Red Cell Distribution Width 14.2 % (11.8-14.3); White Blood Cell 7.4 10^3/uL (4.4-10.8)
[2019-07-19 15:10] LABS: Albumin 2.3 g/dL (3.4-5.0); Calcium 8.4 mg/dL (8.5-10.1); Potassium 4.3 mmol/L (3.5-5.1)
[2019-07-19 15:13] LABS: % Iron Saturation 96.1 % (15-50)
[2019-07-19 15:14] LABS: BUN/Creatinine Ratio 8.1; Bilirubin, Total 1.2 mg/dL (0.2-1.0)
== END | disposition home or self-care (01) ==
LOC: LAB 14:22
PROVIDERS: ATTEND Internal Medicine
DX: N39.0 Urinary tract infection, site not specified (principal); R19.7 Diarrhea, unspecified; D69.59 Other secondary thrombocytopenia
CPT/HCPCS: 36415; 80053; 82607; 83540; 83550; 85025

== ENCOUNTER 2019-07-22 10:05 | Inpatient (IN) | payer OTHER ==
[~2019-07-22] VITALS: Ht 160 cm; Wt 73.1 kg
[2019-07-22 10:45] LABS: Basophils # (auto) 0.1 uL; Eosinophils # (auto) 0 uL; Hematocrit 40.4 % (36.0-46.0); Hemoglobin 13.3 g/dL (12.2-16.2); Lymphocytes # (auto) 1.5 uL; Lymphocytes % (auto) 10.5 % (10.0-50.0); Mean Corpuscular Hemoglobin 33.1 pg (28.0-32.0); Mean Corpuscular Hgb Conc. 33.1 g/dL (32.0-36.0); Monocytes # (auto) 1.3 uL; Monocytes % (auto) 9.2 % (0.0-12.0); Neutrophils # (auto) 11.4 uL; Neutrophils % (auto) 79.3 % (37.0-80.0); Nucleated Red Blood Cells % 0.1 %; Platelet Count (auto) 224 10^3/uL (140-450); Red Blood Cells 4.04 10^6/uL (4.0-5.20); Red Cell Distribution Width 14.4 % (11.8-14.3); White Blood Cell 14.4 10^3/uL (4.4-10.8)
[2019-07-22 11:01] LABS: Albumin 2.6 g/dL (3.4-5.0); Calcium 8.8 mg/dL (8.5-10.1); Potassium 4.5 mmol/L (3.5-5.1)
[2019-07-22 11:04] LABS: BUN/Creatinine Ratio 12.5; Bilirubin, Total 1.2 mg/dL (0.2-1.0); Total Protein 6.6 g/dL (6.4-8.2)
[2019-07-22] MEDS ORDERED: PROMETHAZINE HCL 25 MG/ML 1ML ONE (11:06)
[2019-07-22] MEDS ORDERED: PANTOPRAZOLE 40 MG/10 ML VIAL INJ IV ONE ×2 (11:07→11:15)
[2019-07-22] MEDS ORDERED: PROMETHAZINE HCL 25 MG/ML 1ML IV ONE (11:15)
[2019-07-22] MEDS ORDERED: ENOXAPARIN SOD 80 MG/0.8ML SYRINGE SC ONE (12:00)
[2019-07-22] MEDS ORDERED: ASPirin 81 mg TAB PO ONE (12:00)
[2019-07-22] MEDS ORDERED: PIPERACILLIN-TAZOB 3.375GM 100 ML IV ONE (12:00)
[2019-07-22] MEDS ORDERED: DEXTROSE (50%) 50ML SYRG IV PRN (12:45)
[2019-07-22] MEDS ORDERED: traMADol HCL 50 MG TAB PO PRN (12:45)
[2019-07-22] MEDS ORDERED: ALBUTEROL SULF 2.5 MG/0.5ML(0.5%) NEB SOLN NEB PRN (12:45)
[2019-07-22] MEDS ORDERED: LACTULOSE 20Gm/30ML SOLN PO PRN (12:45)
[2019-07-22] MEDS ORDERED: LEVOFLOXACIN 500MG 100 ML IV ONE (12:45)
[2019-07-22] MEDS ORDERED: ACETAMINOPHEN 500 MG TAB PO PRN (12:45)
[2019-07-22] MEDS ORDERED: NITROGLYCERIN 0.4 MG SL TAB SL PRN (12:45)
[2019-07-22 13:00] VITALS: BP 159/98
[2019-07-22 13:36] LABS: INR 1.07 (0.9-1.15); Partial Thromboplastin Time 22.5 sec (23.64-32.05)
[2019-07-22 13:52] LABS: CRP High Sensitivity 0.04 mg/dL (< 0.3)
--- NOTE | 2019-07-22 14:18 | NUR ---
Telemetry admit from ER: HENOK DAIGLE admitted to Telemetry unit after NO SBAR received. Patient oriented to JOSE SWIFT, RN primary RN, unit, room, bed, and unit policies regarding patient care and visiting hours. Patient now on continuous telemetry monitoring, tele box # [id number]. Patient encouraged to call if they need something. All questions and concerns addressed, patient verbalized understanding.
[2019-07-22] MEDS: metroNIDAZOLE 500MG/100ML 100 ML IV SCH ×2 (15:51→22:43)
[2019-07-22] MEDS: PROMETHAZINE HCL 25 MG/ML 1ML IV PRN (16:01)
[2019-07-22 16:59] VITALS: BP 153/79
[2019-07-22] MEDS: ACCU-CHEK COMFORT CURVE STRIP VI SCH ×2 (17:00→22:45)
[2019-07-22 18:01] LABS: Hematocrit 35.8 % (36.0-46.0)
[2019-07-22] MEDS: SUCRALFATE 1 GM/10 ML ORAL SUSP PO SCH ×2 (18:20→22:43)
[2019-07-22] MEDS: CARVEDILOL 3.125 MG TAB PO SCH (18:21)
[2019-07-22] MEDS: ALBUTEROL SULF 2.5 MG/0.5ML(0.5%) NEB SOLN NEB SCH ×2 (18:37→23:52)
[2019-07-22] MEDS: IPRATROPIUM BROM 0.5 MG/2.5ML INH SOL NEB SCH ×2 (18:37→23:52)
--- NOTE | 2019-07-22 19:25 | NUR ---
Opening Shift Note Assumed care of patient, awake and alert. No S/S of distress/SOB or pain. Safety measures in place bed in lowest position, side rails x2 up, and call light within reach. Instructed on POC and to call for assist PRN, will continue to monitor for changes Q1hr and PRN.
--- NOTE | 2019-07-22 21:50 | NUR ---
Patient unable to undergo CT Angiogram due to allergies to Iodine and contrast. Notified Dr. Foster, orders received for VQ scan and cancellation of CT Angiogram.
[2019-07-22 22:20] VITALS: BP 151/75
[2019-07-22] MEDS: TEMAZEPAM 15 MG CAP PO PRN (22:43)
[2019-07-22] MEDS: ATORVASTATIN 20 MG TAB PO SCH (22:44)
[2019-07-22] MEDS: PANTOPRAZOLE 40 MG TAB PO SCH (22:44)
[2019-07-22] MEDS: LISINOPRIL 5 MG TAB PO SCH (22:45)
--- NOTE | 2019-07-23 00:39 | NUR ---
A-fib Paged hospitalist. Patient is sustaining Afib status. Patient states she believes she has been diagnosed with A-fib in the past. EKG performed confirming status. Orders received.
[2019-07-23] MEDS: METOPROLOL TARTRATE 1MG/1ML-5ML VIAL IV SCH ×3 (01:00→05:15)
[2019-07-23 02:05] LABS: Hematocrit 31.2 % (36.0-46.0); Hemoglobin 10.5 g/dL (12.2-16.2)
[2019-07-23 05:28] VITALS: BP 124/68
[2019-07-23] MEDS: ALBUTEROL SULF 2.5 MG/0.5ML(0.5%) NEB SOLN NEB SCH ×3 (06:25→18:30)
[2019-07-23] MEDS: IPRATROPIUM BROM 0.5 MG/2.5ML INH SOL NEB SCH ×3 (06:25→18:30)
[2019-07-23] MEDS: metroNIDAZOLE 500MG/100ML 100 ML IV SCH ×3 (06:26→22:35)
[2019-07-23] MEDS: ACCU-CHEK COMFORT CURVE STRIP VI SCH ×2 (06:26→11:15)
[2019-07-23] MEDS: SUCRALFATE 1 GM/10 ML ORAL SUSP PO SCH ×4 (06:39→23:00)
--- NOTE | 2019-07-23 07:16 | NUR ---
Opening Shift Note: Assumed care of patient, awake and alert. No S/S of distress/SOB or pain. Bed in lowest locked position, side rails up x 2, call light within reach. Patient instructed on POC and to call for assist PRN, will continue to monitor for changes Q1hr and PRN.
[2019-07-23] MEDS: CARVEDILOL 3.125 MG TAB PO SCH ×2 (08:00→17:09)
[2019-07-23 08:14] LABS: Basophils # (auto) 0 uL; Eosinophils # (auto) 0.1 uL; Hemoglobin 10.9 g/dL (12.2-16.2); Monocytes # (auto) 0.8 uL; Red Cell Distribution Width 14.5 % (11.8-14.3); White Blood Cell 6.6 10^3/uL (4.4-10.8)
[2019-07-23 08:24] LABS: Basophils % (auto) 0.6 % (0.0-2.0); Eosinophils % (auto) 1.4 % (0.0-7.0); Hematocrit 32.1 % (36.0-46.0); Lymphocytes # (auto) 1.9 uL; Lymphocytes % (auto) 28.2 % (10.0-50.0); Mean Corpuscular Hemoglobin 34.2 pg (28.0-32.0); Mean Corpuscular Volume 100.5 fL (80.0-100.0); Monocytes % (auto) 12.7 % (0.0-12.0); Neutrophils # (auto) 3.7 uL; Neutrophils % (auto) 57.1 % (37.0-80.0); Platelet Count (auto) 124 10^3/uL (140-450)
[2019-07-23] MEDS: PROMETHAZINE HCL 25 MG/ML 1ML IV PRN ×2 (08:27→18:03)
[2019-07-23 08:28] LABS: Albumin 1.8 g/dL (3.4-5.0); Calcium 7.9 mg/dL (8.5-10.1); Potassium 3.7 mmol/L (3.5-5.1)
[2019-07-23 08:32] LABS: BUN/Creatinine Ratio 15.1; Bilirubin, Total 0.7 mg/dL (0.2-1.0)
[2019-07-23 08:35] LABS: Cholesterol 70 mg/dL (< 200); HDL Cholesterol 28 mg/dL (40-59); LDL Cholesterol 32 mg/dL (< 100); Triglycerides 85 mg/dL (< 150)
[2019-07-23] MEDS: LEVOFLOXACIN 500MG 100 ML IV SCH (09:33)
[2019-07-23] MEDS: traZODone HCL 50 MG TAB PO SCH (09:34)
[2019-07-23] MEDS: LISINOPRIL 5 MG TAB PO SCH ×2 (09:34→22:35)
[2019-07-23] MEDS: PANTOPRAZOLE 40 MG TAB PO SCH ×2 (09:34→22:35)
[2019-07-23] MEDS: NITROGLYCERIN 0.2MG/HR TOPICAL PATCH TD SCH (09:34)
[2019-07-23] MEDS: CITALOPRAM HYDROBR 20 MG TAB PO SCH (09:35)
[2019-07-23] MEDS: NIFEdipine ER 30 MG TAB PO SCH (09:35)
--- NOTE | 2019-07-23 11:28 | NUR ---
DR. STANLEY: Dr. Adler at bedside. Discussed POC with patient.
--- NOTE | 2019-07-23 12:37 | NUR ---
DR. STANLEY: Dr. Horowitz at bedside. Discussed POC with patient. Patient verbally agreed. Will continue to monitor.
[2019-07-23 12:47] VITALS: BP 108/64
--- NOTE | 2019-07-23 14:02 | NUR ---
RIGHT AC IV BEGAN TO LEAK. IV DC'D WITH CLEAN STERILE TECHNIQUE. IV insertion: IV access obtained, via clean sterile technique by inserting 22 gauge catheter at LEFT FOREARM after 1 attempt. IV secured properly. No trauma to site. Patient tolerated well. IV insertion: IV access obtained, via clean sterile technique by inserting 22 gauge catheter at RIGHT WRIST after 1 attempt. IV secured properly. No trauma to site. Patient tolerated well.
[2019-07-23 17:59] VITALS: BP 102/51
--- NOTE | 2019-07-23 19:28 | NUR ---
Opening Shift Note Assumed care of patient, awake and alert. No S/S of distress/SOB or pain. Safety measures in place bed in lowest position, side rails x2 up, call light within reach. Instructed on POC and to call for assist PRN, will continue to monitor for changes Q1hr and PRN.
[2019-07-23] MEDS: ATORVASTATIN 20 MG TAB PO SCH (22:35)
[2019-07-24] VITALS (7 sets, daily range): BP systolic 94–128; BP diastolic 50–79
[2019-07-24] MEDS: ALBUTEROL SULF 2.5 MG/0.5ML(0.5%) NEB SOLN NEB SCH ×4 (00:24→18:44)
[2019-07-24] MEDS: IPRATROPIUM BROM 0.5 MG/2.5ML INH SOL NEB SCH ×4 (00:24→18:44)
[2019-07-24] MEDS: TEMAZEPAM 15 MG CAP PO PRN ×2 (00:48→23:48)
[2019-07-24] MEDS: metroNIDAZOLE 500MG/100ML 100 ML IV SCH ×3 (06:14→21:46)
[2019-07-24] MEDS: SUCRALFATE 1 GM/10 ML ORAL SUSP PO SCH ×4 (06:45→21:45)
--- NOTE | 2019-07-24 07:11 | NUR ---
Opening Shift Note: Assumed care of patient, awake and alert. No S/S of distress/SOB or pain. Bed in lowest locked positions, side rails up x 2, call light within reach. Patient instructed on POC and to call for assist PRN, will continue to monitor for changes Q1hr and PRN.
[2019-07-24] MEDS: CARVEDILOL 3.125 MG TAB PO SCH ×2 (08:00→17:46)
--- NOTE | 2019-07-24 08:06 | NUR ---
Patient off unit.
[2019-07-24] MEDS ORDERED: ADENOSINE 59 MG in GIVE UN-DILUTED 0 ML IV STA (08:34)
--- NOTE | 2019-07-24 09:40 | NUR ---
Patient back to unit.
[2019-07-24] MEDS: LISINOPRIL 5 MG TAB PO SCH ×2 (10:00→22:00)
[2019-07-24] MEDS: NITROGLYCERIN 0.2MG/HR TOPICAL PATCH TD SCH (10:00)
[2019-07-24] MEDS: NIFEdipine ER 30 MG TAB PO SCH (10:00)
[2019-07-24] MEDS: CITALOPRAM HYDROBR 20 MG TAB PO SCH (10:19)
[2019-07-24] MEDS: traZODone HCL 50 MG TAB PO SCH (10:19)
[2019-07-24] MEDS: LEVOFLOXACIN 500MG 100 ML IV SCH (10:19)
[2019-07-24] MEDS: PANTOPRAZOLE 40 MG TAB PO SCH ×2 (10:19→21:45)
--- NOTE | 2019-07-24 12:07 | NUR ---
DR. STANLEY: Dr. Horowitz at bedside.
--- NOTE | 2019-07-24 15:37 | NUR ---
Attempted to call radiology regarding pending VQ scan. No answer at this time.
[2019-07-24] MEDS: ATORVASTATIN 20 MG TAB PO SCH (21:46)
--- NOTE | 2019-07-24 23:59 | NUR ---
Patient ambulated to the bathroom using standby assist. Patient ambulated back to bed. No S/S of distress or pain at this time. Will continue to monitor.
[2019-07-25] MEDS: IPRATROPIUM BROM 0.5 MG/2.5ML INH SOL NEB SCH ×4 (00:02→18:30)
[2019-07-25] MEDS: ALBUTEROL SULF 2.5 MG/0.5ML(0.5%) NEB SOLN NEB SCH ×4 (00:02→18:29)
--- NOTE | 2019-07-25 03:24 | NUR ---
Closing note: Care endorsed to [facility].
--- NOTE | 2019-07-25 03:30 | NUR ---
RECEIVED REPORT. ASSUMED CARE.
[2019-07-25 05:00] VITALS: BP 91/55
[2019-07-25] MEDS: metroNIDAZOLE 500MG/100ML 100 ML IV SCH ×3 (07:00→22:10)
[2019-07-25] MEDS: SUCRALFATE 1 GM/10 ML ORAL SUSP PO SCH ×4 (07:27→22:04)
[2019-07-25] MEDS: CARVEDILOL 3.125 MG TAB PO SCH ×2 (08:00→18:00)
[2019-07-25 08:11] VITALS: BP 102/66
[2019-07-25 09:00] VITALS: BP 127/64
[2019-07-25] MEDS: NITROGLYCERIN 0.2MG/HR TOPICAL PATCH TD SCH (10:30)
[2019-07-25] MEDS: CITALOPRAM HYDROBR 20 MG TAB PO SCH (10:30)
[2019-07-25] MEDS: LEVOFLOXACIN 500MG 100 ML IV SCH (10:30)
[2019-07-25] MEDS: NIFEdipine ER 30 MG TAB PO SCH (10:30)
[2019-07-25] MEDS: traZODone HCL 50 MG TAB PO SCH (10:30)
[2019-07-25] MEDS: LISINOPRIL 5 MG TAB PO SCH ×2 (10:30→22:00)
[2019-07-25] MEDS: PANTOPRAZOLE 40 MG TAB PO SCH ×2 (10:30→22:04)
--- NOTE | 2019-07-25 12:07 | NUR ---
NUCLEAR MEDICINE CONTACTED RE: VQ SCAN ORDERED. I WAS MADE AWARE THAT THERE MUST BE A 2 DAY WAIT TIME FROM WHEN THE CARDIAC STRESS TEST WAS PERFORMED. THAT WOULD MAKE TOMORROW THE SOONEST TO PERFORM A VQ SCAN. DR. HERZOG AT NURSING STATION AND MADE AWARE.
[2019-07-25 13:00] VITALS: BP 108/56
--- NOTE | 2019-07-25 13:50 | NUR ---
TRANSPORT COMES TO TAKE PT FOR VQ SCAN. QUESTIONED IF REQUIRED TO WAIT 2 DAYS BETWEEN TESTS. TRANSPORT STATES THAT THE TECH IS REQUESTING FOR TEST AND WILL PASS ON THE REQUEST FOR CLARIFICATION.
--- NOTE | 2019-07-25 15:00 | NUR ---
PT'S BROTHER VISITS. BROUGHT FRESH SMITH AND CANDY. PT HAS PLEASANT SMILE AND BRIGHT FACIAL EXPRESSIONS.
--- NOTE | 2019-07-25 16:41 | NUR ---
assessment Patient is a 69 year old female who is alert and oriented. Patients cognitive abilities are intact. Prior to admission patient lived home alone and functioned with assistance. Per patient she will return home with her brother Juanito post discharge and he will transport her home. Patient informed me she needs assistance with cooking and dressing. I have referred [facility] to [facility] for the [place] aid and assist program. [place] will meet with patient preet at bedside at 530pm. Patient does have a fww and a cane for home use. Patients post discharge needs to be determined prior to discharge and after PT eval. I informed patient she has a right to speak to a hospital social worker regarding all care. I informed patient she has a right to participate in any and all discharge planning. Patient has a POA and advanced directive. Patient verbalized understanding and agreed to discharge plan. Addendum: 07/25/19 at 1644 by Jacqueline HOUSE Amended: Links added.
[2019-07-25 17:00] VITALS: BP 98/39
--- NOTE | 2019-07-25 17:00 | NUR ---
AID REPORTS SBP IN 80'S AND PATIENT REPORTS NOT FEELING. IV FLUIDS RESUMED AND NITRO PATCH REMOVED.
--- NOTE | 2019-07-25 18:10 | NUR ---
REPEAT B/P THEN 108. MOVED TO ROOM 285B DUE TO ROOM MATE TEST POSITIVE FOR MRSA IN THE NARES.
--- NOTE | 2019-07-25 19:50 | NUR ---
RECEIVED PATIENT FROM DAY SHIFT RN. PATIENT RESTING IN BED. NO S/S OF DISTRESS NOTED. DENIED PAIN FOR NOW. PATIENT C/O WEAKNESS, DENIED DIZZINESS AND LIGHT HEADACHE FOR NOW. POC INSTRUCTED AND ENCOURAGED PATIENT TO CALL FOR SET UP PERSON IF NEEDED. BED IN LOWEST POSITION WITH SIDE RAILS UP X 2. CALL MORALEZ WITHIN REACH. ALARM ON. CONTINUE TO MONITOR FOR CHANGES Q1H AND PRN.
--- NOTE | 2019-07-25 21:52 | NUR ---
ASSISTED PATIENT TO BATHROOM AND BACK TO BED. PATIENT TOLERATED WELL. NO S/S OF DISTRESS NOTED. DENIED DIZZINESS AND LIGHT HEADACHE FOR NOW. CONTINUE TO MONITOR.
[2019-07-25] MEDS: ATORVASTATIN 20 MG TAB PO SCH (22:04)
[2019-07-25 22:18] VITALS: BP 117/55
--- NOTE | 2019-07-25 22:37 | NUR ---
PATIENT'S BP MEDICATION HELD SINCE PATIENT'S BP WAS LOW IN DAYS, WILL CONTINUE TO MONITOR.
[2019-07-26] MEDS: TEMAZEPAM 15 MG CAP PO PRN (00:01)
--- NOTE | 2019-07-26 00:01 | NUR ---
RT AT BEDSIDE
[2019-07-26] MEDS: IPRATROPIUM BROM 0.5 MG/2.5ML INH SOL NEB SCH ×3 (00:09→13:24)
[2019-07-26] MEDS: ALBUTEROL SULF 2.5 MG/0.5ML(0.5%) NEB SOLN NEB SCH ×3 (00:09→13:24)
--- NOTE | 2019-07-26 02:00 | NUR ---
PATIENT SLEEPING. NO S/S OF DISTRESS NOTED. CONTINUE CARE
--- NOTE | 2019-07-26 05:38 | NUR ---
ASSISTED PATIENT TO BATHROOM AND BACK TO BED. PATIENT TOLERATED WELL. NO S/S OF DISTRESS NOTED. DENIED DIZZINESS AND LIGHT HEADACHE FOR NOW. PATIENT'S BP 105/51, HR 78 AT THIS TIME. CONTINUE TO MONITOR.
[2019-07-26] MEDS: metroNIDAZOLE 500MG/100ML 100 ML IV SCH (06:16)
[2019-07-26] MEDS: SUCRALFATE 1 GM/10 ML ORAL SUSP PO SCH ×2 (06:17→12:53)
--- NOTE | 2019-07-26 07:27 | NUR ---
Respiratory note: PT REFUSING SCHEDULED MED NEB TX, STATES SHE WANTS TO SLEEP. DENIES SOB OR DIFF BREATHING, NO DISTRESS NOTED. PT STATES SHE WILL TAKE NEXT SCHEDULED TX AT NOON HR. HR 80 RR 16 SPO2 90% BREATH SOUNDS ARE CLEAR/DIMINISHED T/O.
--- NOTE | 2019-07-26 07:30 | NUR ---
Opening Shift Note Assuming care of patient at this time. Patient is awake and alert. Patient denies pain. Patient shows no signs or symptoms of distress or shortness of breath. Bed is locked and lowered with side rails up x2. Instructed patient on the plan of care for today and to call for assistance. Call light within reach. Will continue to round hourly and as needed.
--- NOTE | 2019-07-26 07:30 | NUR ---
Opening Shift Note Assuming care of patient at this time. Patient is awake and alert. Patient denies pain. Patient shows no signs or symptoms of distress or shortness of breath. Bed is locked and lowered with side rails up x2. Instructed patient on the plan of care for today and to call for assistance as needed. Call light within reach. Will continue to round hourly and as needed.
[2019-07-26] MEDS: CARVEDILOL 3.125 MG TAB PO SCH (08:00)
[2019-07-26 09:00] VITALS: BP 105/52
[2019-07-26] MEDS: LEVOFLOXACIN 500MG 100 ML IV SCH (09:18)
[2019-07-26] MEDS: CITALOPRAM HYDROBR 20 MG TAB PO SCH (09:19)
[2019-07-26] MEDS: LISINOPRIL 5 MG TAB PO SCH (10:00)
[2019-07-26] MEDS: NITROGLYCERIN 0.2MG/HR TOPICAL PATCH TD SCH (10:00)
[2019-07-26] MEDS: NIFEdipine ER 30 MG TAB PO SCH (10:00)
--- NOTE | 2019-07-26 11:47 | NUR ---
Re: Hospital Bed Notified Dr. Horowitz that patient will not qualify for hospital bed. Dr. Horowitz verbalized understanding. Patient to be discharged according to doctor's orders.
[2019-07-26] MEDS ORDERED: ONDANSETRON HCL 4 MG/2 ML VIAL IV ONE (12:45)
[2019-07-26] MEDS: traZODone HCL 50 MG TAB PO SCH (12:53)
[2019-07-26] MEDS: PANTOPRAZOLE 40 MG TAB PO SCH (12:53)
[2019-07-26 12:56] VITALS: BP 117/61
[2019-07-26 12:59] VITALS: BP 117/61
--- NOTE | 2019-07-26 13:25 | NUR ---
Respiratory note: PT IS REFUSING SCHEDULED MED NEB TX , STATES SHE IS NOT CURRENTLY HAVING SOB OR DIFF BREATHING. NO DISTRESS NOTED. HR 88 RR 16 SPO2 90% ON RA BREATH SOUNDS ARE DIMINISHED. PT AND RN AWARE TO HAVE RT PAGED IF NEEDED.
--- NOTE | 2019-07-26 14:53 | NUR ---
Re: hospital bed Spoke with Fely in social service assistant. Authorization for bed has been obtained. Bed to be delivered to patient's home. Patient aware. Will be discharged according to doctor's orders.
--- NOTE | 2019-07-26 15:00 | NUR ---
Re: Hospital Bed Received a call from Fely, in manager social responsibility, patient no longer authorized to receive bed. Will notify patient.
--- NOTE | 2019-07-26 16:45 | NUR ---
Discharge1 Discharge instructions given as ordered. Encourage to follow up with PMD as instructed. All questions and concerns addressed. Patient verbalized understanding. Medication reconciliation form completed and copy given to patient. Home medications held in Pharmacy returned to patient. IVs removed with catheters intact, pressure dressing applied. Telemetry unit returned to ICU. Patient taken to vehicle via wheelchair with all personal belongings, accompanied by staff and family member. No distress noted at time of departure.
== END 2019-07-26 16:45 | disposition home or self-care (01) | DRG 391 ==
LOC: ER 10:05 → TELE 10:06 → TELE-WESTW 14:18
PROVIDERS: ADMIT Internal Medicine; ATTEND Family Medicine
DX: K21.0 Gastro-esophageal reflux disease with esophagitis (principal); I50.33 Acute on chronic diastolic (congestive) heart failure; J44.1 Chronic obstructive pulmonary disease with (acute) exacerbation; K92.2 Gastrointestinal hemorrhage, unspecified; K57.90 Diverticulosis of intestine, part unspecified, without perforation or abscess without bleeding; D72.829 Elevated white blood cell count, unspecified; D64.9 Anemia, unspecified; F32.9 Major depressive disorder, single episode, unspecified; E78.00 Pure hypercholesterolemia, unspecified; I11.0 Hypertensive heart disease with heart failure; R07.89 Other chest pain; I25.10 Atherosclerotic heart disease of native coronary artery without angina pectoris; E78.5 Hyperlipidemia, unspecified; I25.2 Old myocardial infarction; Z82.49 Family history of ischemic heart disease and other diseases of the circulatory system; Z86.73 Personal history of transient ischemic attack (TIA), and cerebral infarction without residual deficits; Z98.84 Bariatric surgery status; Z95.5 Presence of coronary angioplasty implant and graft; Z91.041 Radiographic dye allergy status; Z91.013 Allergy to seafood
CPT/HCPCS: 36415; 71045; 74176; 78452; 78582; 80053; 80061; 82150; 82550; 82962; 83036; 83605; 83690; 83880; 84443; 84484; 85014; 85018; 85025; 85045; 85379; 85610; 85652; 85730; 86141; 87040; 93005; 93017; 93306; 93970; 94640; 96372; 96374; 96375; 97163; 99291; C9113; G0378; J0153; J1956; J2405; J3490

== ENCOUNTER → 2019-08-08 | Outpatient (CLI) | payer OTHER ==
[2019-08-08 14:02] LABS: Urine Bacteria NONE SEEN /hpf (None Seen); Urine Blood Negative /uL (Negative); Urine Hyaline Cast FEW /lpf (0 - 2); Urine Specific Gravity 1.012 (1.001-1.035); Urine WBC 133 /hpf (0 - 5)
== END | disposition home or self-care (01) ==
LOC: LAB 13:47
PROVIDERS: ATTEND Internal Medicine
DX: R19.7 Diarrhea, unspecified (principal)
CPT/HCPCS: 81001

== ENCOUNTER → 2019-08-09 | Outpatient (CLI) | payer OTHER | END | disposition home or self-care (01) | LOC: LAB 14:39 | PROVIDERS: ATTEND Internal Medicine | DX: R19.7 Diarrhea, unspecified (principal) | CPT/HCPCS: 87493 ==

== ENCOUNTER 2019-08-10 15:59 | Inpatient (IN) | payer OTHER ==
[~2019-08-10] VITALS: Ht 160 cm; Wt 82.3 kg
[2019-08-10 17:21] LABS: Basophils # (auto) 0.1 uL; Basophils % (auto) 1.1 % (0.0-2.0); Eosinophils # (auto) 0 uL; Eosinophils % (auto) 0.2 % (0.0-7.0); Hematocrit 40.6 % (36.0-46.0); Hemoglobin 13.6 g/dL (12.2-16.2); Lymphocytes # (auto) 1.1 uL; Lymphocytes % (auto) 11.5 % (10.0-50.0); Mean Corpuscular Hemoglobin 32.8 pg (28.0-32.0); Mean Corpuscular Hgb Conc. 33.4 g/dL (32.0-36.0); Mean Corpuscular Volume 98.3 fL (80.0-100.0); Monocytes # (auto) 0.7 uL; Neutrophils # (auto) 7.3 uL; Neutrophils % (auto) 79.2 % (37.0-80.0); Platelet Count (auto) 219 10^3/uL (140-450); Red Blood Cells 4.13 10^6/uL (4.0-5.20); Red Cell Distribution Width 14.4 % (11.8-14.3); White Blood Cell 9.2 10^3/uL (4.4-10.8)
[2019-08-10 17:28] LABS: Albumin 2.6 g/dL (3.4-5.0); Calcium 8.2 mg/dL (8.5-10.1)
[2019-08-10] MEDS ORDERED: SODIUM CHLORIDE 0.9% 1,000 ML IV ONE (17:30)
[2019-08-10 17:36] LABS: Bilirubin, Total 1.1 mg/dL (0.2-1.0); Total Protein 6.6 g/dL (6.4-8.2)
[2019-08-10 17:39] LABS: Potassium 2.6 mmol/L (3.5-5.1)
[2019-08-10 18:29] LABS: BUN/Creatinine Ratio 5.6
[2019-08-10] MEDS ORDERED: POTASSIUM EFFERVESENT TAB 25 MEQ PO ONE (19:00)
[2019-08-10] MEDS ORDERED: ONDANSETRON HCL 4 MG/2 ML VIAL IV PRN (20:30)
[2019-08-10] MEDS ORDERED: MORPHINE SULF INJ 2 MG/ML SYRINGE 1ML IV PRN (21:00)
[2019-08-10] MEDS ORDERED: NITROGLYCERIN 0.4 MG SL TAB SL PRN (21:00)
[2019-08-10] MEDS ORDERED: PROMETHAZINE HCL 25 MG/ML 1ML IV ONE (22:00)
[2019-08-10] MEDS: CARVEDILOL 3.125 MG TAB PO SCH (22:10)
[2019-08-10] MEDS: FAMOTIDINE 20 MG TAB PO SCH (22:11)
[2019-08-10] MEDS: LISINOPRIL 5 MG TAB PO SCH (22:11)
[2019-08-10] MEDS: ATORVASTATIN 20 MG TAB PO SCH (22:11)
[2019-08-10 22:52] VITALS: BP 135/65
[2019-08-10 22:58] VITALS: BP 168/90
[2019-08-10] MEDS ORDERED: PROMETHAZINE HCL 25 MG/ML 1ML ONE (23:15)
[2019-08-10 23:24] VITALS: BP 168/90
[2019-08-11] MEDS: ALBUTEROL SULF 2.5 MG/0.5ML(0.5%) NEB SOLN NEB SCH ×4 (00:21→18:50)
[2019-08-11] MEDS ORDERED: PROMETHAZINE HCL 25 MG/ML 1ML IV ONE (00:30)
--- NOTE | 2019-08-11 02:21 | NUR ---
PT resting comfortably semi fowlers with HOB 30 degrees, with eyes closed. no s/s of discomfort at this time, no nausea vomiting or diarrhea. blood pressure at this time is 108/51 heart rate 79.
[2019-08-11 06:20] VITALS: BP 129/60
[2019-08-11 06:25] LABS: Basophils # (auto) 0 uL; Basophils % (auto) 0.6 % (0.0-2.0); Eosinophils # (auto) 0.1 uL; Eosinophils % (auto) 1.3 % (0.0-7.0); Hematocrit 32.7 % (36.0-46.0); Hemoglobin 11.3 g/dL (12.2-16.2); Lymphocytes # (auto) 2.4 uL; Lymphocytes % (auto) 35.5 % (10.0-50.0); Mean Corpuscular Hemoglobin 33.9 pg (28.0-32.0); Mean Corpuscular Hgb Conc. 34.5 g/dL (32.0-36.0); Mean Corpuscular Volume 98.2 fL (80.0-100.0); Monocytes # (auto) 0.9 uL; Neutrophils # (auto) 3.2 uL; Neutrophils % (auto) 48.6 % (37.0-80.0); Platelet Count (auto) 123 10^3/uL (140-450); Red Blood Cells 3.33 10^6/uL (4.0-5.20); Red Cell Distribution Width 14.3 % (11.8-14.3); White Blood Cell 6.7 10^3/uL (4.4-10.8)
[2019-08-11 06:45] LABS: BUN/Creatinine Ratio 7.6; Calcium 7.6 mg/dL (8.5-10.1)
--- NOTE | 2019-08-11 06:53 | NUR ---
critical lab Doris from lab with critical potassium 2.6L will notify
[2019-08-11 06:54] LABS: Potassium 2.6 mmol/L (3.5-5.1)
--- NOTE | 2019-08-11 07:19 | NUR ---
pt resting comfortably in semi fowlers with eyes closed. no s/s of distress or discomfort. bed in low locked position and call light within reach
[2019-08-11] MEDS ORDERED: POTASSIUM CHL 20 Meq TABLET PO ONE ×3 (08:00→17:45)
[2019-08-11] MEDS: CARVEDILOL 3.125 MG TAB PO SCH ×2 (08:37→21:59)
[2019-08-11] MEDS: FAMOTIDINE 20 MG TAB PO SCH ×2 (08:37→22:00)
[2019-08-11] MEDS: CLOPIDOGREL BISULFATE 75 MG TAB PO SCH (08:37)
[2019-08-11] MEDS: LISINOPRIL 5 MG TAB PO SCH ×2 (08:39→22:01)
[2019-08-11 09:33] VITALS: BP 133/64
[2019-08-11] MEDS ORDERED: PANTOPRAZOLE 40 MG TAB PO SCH (10:00)
[2019-08-11] MEDS ORDERED: ASPirin 81 mg TAB PO SCH (10:00)
[2019-08-11] MEDS: NIFEdipine ER 30 MG TAB PO SCH (12:14)
[2019-08-11 13:00] VITALS: BP 134/70
[2019-08-11] MEDS ORDERED: PROMETHAZINE HCL 25 MG/ML 1ML IV PRN (13:15)
--- NOTE | 2019-08-11 13:39 | NUR ---
Pt is not appropriate for mobilization at this time with K+ of 2.6. Exercise is contraindicated with K+ <3.0. Will attempt again tomorrow.
--- NOTE | 2019-08-11 13:50 | NUR ---
Nutrition Assessment Notes Please refer to link for full assessment notes. Est energy needs: 2826-2014 kcals (23-25 kcal/kgBW) Est protein needs: 71-78 gms/day (1.0-1.1 gm/kgBW) d/t age Will continue to monitor and reassess prn. Addendum: 08/11/19 at [address] Amended: Links added.
--- NOTE | 2019-08-11 15:29 | NUR ---
assessment Patient is a 69 year old female who is alert and oriented. Patients cognitive abilities are intact. Prior to admission patient lived home alone and functioned with assistance. Per patient she returned home with her brother Juanito last visit. Patient informed me she wanted to return home due to her dogs. Patient informed me she is weak due to sepsis. I informed patient we will do a PT eval after her medical work up here in the hospital. Patient informed me she needs assistance with cooking and dressing. I have referred patient to [facility] for the [place] aid [facility] assist program. [facility] to see if she [facility]. Patient does have a fww and a cane for home use. Patients post discharge needs to be determined prior to discharge and after PT eval. I informed patient she has a right to speak to a social work instructor regarding all care. I informed patient she has a right to participate in any and all discharge planning. Patient has a POA and advanced directive. Patient verbalized understanding and agreed to discharge plan. Addendum: 08/11/19 at 1531 by Jacquelnie HOUSE Amended: Links added.
--- NOTE | 2019-08-11 15:49 | NUR ---
IV insertion IV access obtained, via clean sterile technique by inserting 22 gauge catheter at after attempt(s). IV secured properly. No trauma to site. Addendum: 08/11/19 at 1550 by JUAN SELF RN IV STARTED AT 1430 AFTER 1 ATTEMPT.
[2019-08-11] MEDS: SUCRALFATE 1 GM/10 ML ORAL SUSP PO SCH ×2 (16:58→21:58)
[2019-08-11 17:19] VITALS: BP 147/78
--- NOTE | 2019-08-11 19:30 | NUR ---
Opening note pt resting in right lateral position. pt AxO4. no pain or discomfort at this time. resp are even and non labored on room air. pt states that she believes her nausea vomitin and diarrhea has now subsided, and is feeling better today. bed is in low locked position, call light within reach.
--- NOTE | 2019-08-11 19:55 | NUR ---
pt ambulated to bathroom and back.
[2019-08-11 20:00] VITALS: BP 118/65
--- NOTE | 2019-08-11 20:05 | NUR ---
blood draw lab at bedside
[2019-08-11] MEDS: ATORVASTATIN 20 MG TAB PO SCH (22:00)
[2019-08-11] MEDS: PANTOPRAZOLE 40 MG TAB PO SCH (22:01)
[2019-08-11] MEDS: TEMAZEPAM 15 MG CAP PO PRN (22:02)
[2019-08-11] MEDS: ACETAMINOPHEN 325 MG TAB PO PRN (22:03)
[2019-08-11 22:51] VITALS: BP 118/65
[2019-08-12] VITALS (7 sets, daily range): BP systolic 106–115; BP diastolic 57–77
--- NOTE | 2019-08-12 00:21 | NUR ---
Respiratory note: PT IS REFUSING BREATHING TX AT THIS TIME AND IS STATING "SHE DOESN'T FEEL LIKE SHE NEEDS ONE". PT IS ON RA AT THIS TIME. SPO2 94%, HR 79, RR 16. BS CLR/DIM T/O. PT MADE AWARE TO CALL IF SHE WANTS A BREATHING TX. WILL CONTINUE TO MONITOR PT T/O REST OF SHIFT.
--- NOTE | 2019-08-12 03:31 | NUR ---
pt is sleeping in a left lateral position. resp are even and nonlabored. pt does not show s/s of distress or discomfort. bed is in low locked position with call light within reach.
[2019-08-12 05:45] LABS: Basophils # (auto) 0 uL; Basophils % (auto) 0.8 % (0.0-2.0); Eosinophils # (auto) 0.2 uL; Eosinophils % (auto) 3.7 % (0.0-7.0); Hemoglobin 10.2 g/dL (12.2-16.2); Lymphocytes # (auto) 2.4 uL; Lymphocytes % (auto) 42.9 % (10.0-50.0); Mean Corpuscular Hemoglobin 33.6 pg (28.0-32.0); Mean Corpuscular Hgb Conc. 33.9 g/dL (32.0-36.0); Mean Corpuscular Volume 99.1 fL (80.0-100.0); Monocytes # (auto) 0.7 uL; Monocytes % (auto) 13.2 % (0.0-12.0); Neutrophils # (auto) 2.2 uL; Neutrophils % (auto) 39.4 % (37.0-80.0); Nucleated Red Blood Cells % 0.1 %; Platelet Count (auto) 119 10^3/uL (140-450); Red Blood Cells 3.02 10^6/uL (4.0-5.20); Red Cell Distribution Width 14.6 % (11.8-14.3); White Blood Cell 5.6 10^3/uL (4.4-10.8)
[2019-08-12] MEDS: SUCRALFATE 1 GM/10 ML ORAL SUSP PO SCH ×4 (06:15→20:32)
[2019-08-12 06:17] LABS: Calcium 7.9 mg/dL (8.5-10.1); Potassium 4.2 mmol/L (3.5-5.1)
[2019-08-12 06:20] LABS: BUN/Creatinine Ratio 8.6
--- NOTE | 2019-08-12 06:40 | NUR ---
pt resting comfortably in left lateral position with eyes closed. no s/s of pain or distress. resp are even and nonlabored on room room air. bed in low locked position with call light within reach.
[2019-08-12] MEDS: ALBUTEROL SULF 2.5 MG/0.5ML(0.5%) NEB SOLN NEB SCH ×4 (07:09→18:57)
--- NOTE | 2019-08-12 08:00 | NUR ---
ASSESSMENT NOTE PT IS ALERT ORIENTED X4, RESTING IN BED COMFORTABLY, NO SHORTAGE OF BREATH NOTED, ABLE TO VERBALIS HER NEEDS, SELF REPOSITION NEEDED, PAIN 0/10 AT THIS TIME, LARGE SOFT ABDOMEN NOTED, CALL LIGHT WITHIN REACH, BED ALARM ACTIVATED
[2019-08-12] MEDS: CLOPIDOGREL BISULFATE 75 MG TAB PO SCH (09:48)
[2019-08-12] MEDS: PANTOPRAZOLE 40 MG TAB PO SCH ×2 (09:48→20:29)
[2019-08-12] MEDS: ASPirin 81 mg TAB PO SCH (09:49)
[2019-08-12] MEDS: NIFEdipine ER 30 MG TAB PO SCH (09:49)
[2019-08-12] MEDS: LISINOPRIL 5 MG TAB PO SCH ×2 (09:50→20:30)
[2019-08-12] MEDS: CARVEDILOL 3.125 MG TAB PO SCH ×2 (09:50→20:31)
[2019-08-12] MEDS: FAMOTIDINE 20 MG TAB PO SCH ×2 (09:50→20:31)
--- NOTE | 2019-08-12 10:15 | NUR ---
DR Ruby HERZOG AT [facility] FOLLOWING UP ON PT WITH NEW ORDERS
--- NOTE | 2019-08-12 10:40 | NUR ---
PHYSICAL THERAPY AT PT BED SIDE TO EVALUATE PT
--- NOTE | 2019-08-12 14:00 | NUR ---
BM ASSISTED PT TO AMBULATE TO BATHROOM TO HAVE BM , BACK TO BED AND NEEDED AT ALL TIMES, TOLERATED WELL
--- NOTE | 2019-08-12 18:32 | NUR ---
PT CONTINUE STABLE, CONTINUE MONITORING
--- NOTE | 2019-08-12 19:00 | NUR ---
RT NOTE PT WAS SEEN BY RT FOR HHN TX. PT TOLERATES WELL VIA MASK. NO ADVERSE REACTION NOTED. CONT ORDERED Addendum: 08/12/19 at 1901 by Cydney Sidhu RT Amended: Links added.
[2019-08-12] MEDS: ATORVASTATIN 20 MG TAB PO SCH (20:29)
[2019-08-12] MEDS: TEMAZEPAM 15 MG CAP PO PRN (20:32)
[2019-08-13] VITALS (8 sets, daily range): BP systolic 111–138; BP diastolic 59–84
[2019-08-13] MEDS: ALBUTEROL SULF 2.5 MG/0.5ML(0.5%) NEB SOLN NEB SCH ×4 (00:30→19:06)
--- NOTE | 2019-08-13 00:30 | NUR ---
RT NOTE PT WAS SEEN BY RT FOR HHN TX. PT WAS SLEEPING BUT EASILY AWAKENED. PT STATES SHE WANTS TO WAIT UNTIL MORNING FOR NEXT HHN TX. NO SOB OR DISTRESS NOTED. HR 82, RR 16, BS CLEAR/DIM, POX 95% ON ROOM AIR. PT AWARE THAT IF SHE NEEDS A TX BEFORE NEXT SCHEDULED TIME TO LET RN KNOW AND RT WILL RETURN Addendum: 08/13/19 at 0039 by Cydney Sidhu RT Amended: Links added.
--- NOTE | 2019-08-13 03:30 | NUR ---
PT UP OOB WITH ASSISTANCE OF RN TO USE THE BATHROOM.PT DOES NOT WANT A BSC;ASSISTED TO TOILET AND THEN BACK TO BED/ PT TOLERATED WELL.
[2019-08-13] MEDS: SUCRALFATE 1 GM/10 ML ORAL SUSP PO SCH ×4 (05:48→21:34)
[2019-08-13] MEDS: CARVEDILOL 3.125 MG TAB PO SCH ×2 (10:20→21:35)
[2019-08-13] MEDS: ACETAMINOPHEN 325 MG TAB PO PRN (10:22)
[2019-08-13] MEDS: LISINOPRIL 5 MG TAB PO SCH ×2 (10:23→21:36)
[2019-08-13] MEDS: NIFEdipine ER 30 MG TAB PO SCH (10:24)
[2019-08-13] MEDS: ASPirin 81 mg TAB PO SCH (10:24)
[2019-08-13] MEDS: FAMOTIDINE 20 MG TAB PO SCH (10:25)
[2019-08-13] MEDS: PANTOPRAZOLE 40 MG TAB PO SCH ×2 (10:25→21:36)
[2019-08-13 12:12] LABS: BUN/Creatinine Ratio 4.1; Calcium 8.1 mg/dL (8.5-10.1); Potassium 4.1 mmol/L (3.5-5.1)
--- NOTE | 2019-08-13 12:30 | NUR ---
FAMILY PATIENT'S BROTHER AT BED SIDE
--- NOTE | 2019-08-13 15:00 | NUR ---
IV insertion IV access obtained, via clean sterile technique by inserting 22 gauge catheter at after attempt(s). IV secured properly. No trauma to site. Patient tolerated procedure well.
--- NOTE | 2019-08-13 18:00 | NUR ---
PT CONTINUE STABLE, CONTINUE MONITORING
--- NOTE | 2019-08-13 19:25 | NUR ---
Opening Shift Note Assumed care of patient, awake and alert. No S/S of distress/SOB or pain. Instructed on POC and to call for assist PRN, will continue to monitor for changes Q1hr and PRN. PATIENT RESTING IN BED, BED IN LOWEST POSITION, SIDE RALES UP X2, AND CALL LIGHT AT HER SIDE WITHIN REACH.
[2019-08-13] MEDS: ATORVASTATIN 20 MG TAB PO SCH (21:35)
[2019-08-13] MEDS: TEMAZEPAM 15 MG CAP PO PRN (21:36)
[2019-08-14] MEDS: ALBUTEROL SULF 2.5 MG/0.5ML(0.5%) NEB SOLN NEB SCH ×5 (00:37→23:54)
[2019-08-14 05:59] VITALS: BP 122/70
[2019-08-14] MEDS: SUCRALFATE 1 GM/10 ML ORAL SUSP PO SCH ×4 (06:48→22:13)
--- NOTE | 2019-08-14 07:30 | NUR ---
Opening Shift Note Assumed care of patient, awake and alert. No S/S of distress/SOB or pain. Instructed on POC and to call for assist PRN, will continue to monitor for changes Q1hr and PRN.
[2019-08-14 08:53] VITALS: BP 137/77
[2019-08-14] MEDS: ASPirin 81 mg TAB PO SCH (09:33)
[2019-08-14] MEDS: CARVEDILOL 3.125 MG TAB PO SCH ×2 (09:33→22:15)
[2019-08-14] MEDS: PANTOPRAZOLE 40 MG TAB PO SCH ×2 (09:34→22:15)
[2019-08-14] MEDS: FAMOTIDINE 20 MG TAB PO SCH (09:34)
[2019-08-14] MEDS: NIFEdipine ER 30 MG TAB PO SCH (09:34)
[2019-08-14] MEDS: LISINOPRIL 5 MG TAB PO SCH ×2 (09:35→22:16)
[2019-08-14 12:29] LABS: INR 1.18 (0.9-1.15); Partial Thromboplastin Time 26.1 sec (23.64-32.05)
[2019-08-14 12:48] VITALS: BP 118/67
[2019-08-14] MEDS ORDERED: CYA100I IM (16:36)
[2019-08-14] MEDS ORDERED: ALBU108A5 IN (16:36)
[2019-08-14] MEDS ORDERED: [UNRECOGNIZED DRUG - CODE] PO (16:38)
[2019-08-14 17:00] VITALS: BP 123/67
--- NOTE | 2019-08-14 19:25 | NUR ---
Opening Shift Note Assumed care of patient, awake and alert. No S/S of distress/SOB or pain. Instructed on POC and to call for assist PRN, will continue to monitor for changes Q1hr and PRN. PATIENT RESTING IN BED, WITH CALL LIGHT IN HAND, BED IN LOWEST POSITION, SIDE RALES UP X2.
[2019-08-14] MEDS: ACETAMINOPHEN 325 MG TAB PO PRN (19:47)
[2019-08-14 20:20] VITALS: BP 116/67
[2019-08-14 22:00] VITALS: BP 116/67
[2019-08-14] MEDS: ATORVASTATIN 20 MG TAB PO SCH (22:15)
--- NOTE | 2019-08-14 23:54 | NUR ---
Respiratory note: PT SEEN FOR SCHEDULED MED NEB TX AT 2354. PT REFUSED HER TX AT THIS TIME STATING THAT SHE JUST WANTS TO SLEEP. NO DISTRESS NOTED, PT WAS SLEEPING WHEN ENTERING THE ROOM. HR 90 RR 16 POX 98% ON ROOM AIR.
[2019-08-15 05:48] VITALS: BP 123/58
[2019-08-15] MEDS: ALBUTEROL SULF 2.5 MG/0.5ML(0.5%) NEB SOLN NEB SCH ×3 (06:32→19:00)
[2019-08-15] MEDS: SUCRALFATE 1 GM/10 ML ORAL SUSP PO SCH ×4 (06:45→22:09)
--- NOTE | 2019-08-15 07:55 | NUR ---
RECEIVED REPORT AND ASSUMED CARE OF PT.A/OX4. DENIED S/S ACUTE DISTRESS. UPDATE PT WITH POC. BED AT LOWEST POSITION. CALL LIGHT AND BELONGINGS WITHIN REACH. WILL CONT TO MONITOR.
[2019-08-15 07:57] LABS: Basophils # (auto) 0 10 ^3/uL (0-0.2); Basophils % (auto) 0.8 % (0.0-2.0); Eosinophils # (auto) 0.3 10 ^3/uL (0-0.8); Eosinophils % (auto) 6.7 % (0.0-7.0); Hematocrit 34.5 % (36.0-46.0); Hemoglobin 11.5 g/dL (12.2-16.2); Lymphocytes % (auto) 41.8 % (10.0-50.0); Mean Corpuscular Hemoglobin 33.2 pg (28.0-32.0); Mean Corpuscular Hgb Conc. 33.3 g/dL (32.0-36.0); Mean Corpuscular Volume 99.8 fL (80.0-100.0); Monocytes # (auto) 0.5 10 ^3/uL (0-1.3); Neutrophils % (auto) 40.7 % (37.0-80.0); Nucleated Red Blood Cells % 0.2 %; Platelet Count (auto) 107 10^3/uL (140-450); Red Blood Cells 3.46 10^6/uL (4.0-5.20); Red Cell Distribution Width 14.9 % (11.8-14.3); White Blood Cell 4.8 10^3/uL (4.4-10.8)
[2019-08-15 09:00] VITALS: BP 140/68
[2019-08-15] MEDS: PANTOPRAZOLE 40 MG TAB PO SCH ×2 (09:06→22:09)
[2019-08-15] MEDS: FAMOTIDINE 20 MG TAB PO SCH (09:07)
[2019-08-15] MEDS: LISINOPRIL 5 MG TAB PO SCH ×2 (09:07→22:00)
[2019-08-15] MEDS: ASPirin 81 mg TAB PO SCH (09:08)
[2019-08-15] MEDS: CARVEDILOL 3.125 MG TAB PO SCH ×2 (09:08→22:09)
[2019-08-15] MEDS: NIFEdipine ER 30 MG TAB PO SCH (09:08)
--- NOTE | 2019-08-15 12:54 | NUR ---
I spoke with Dr. Ruby Horowitz regarding the plan of care for this patient-he stated patient will have EGD tomorrow and then should be able to discharge home.
[2019-08-15 13:00] VITALS: BP 138/68
[2019-08-15 17:00] VITALS: BP 127/78
--- NOTE | 2019-08-15 19:02 | NUR ---
PT A/OX4. DENIED S/S ACUTE DISTRESS. ENDORSED CARE TO NIGHT NURSE.
[2019-08-15 22:00] VITALS: BP 104/53
[2019-08-15] MEDS: ATORVASTATIN 20 MG TAB PO SCH (22:09)
[2019-08-16] MEDS: TEMAZEPAM 15 MG CAP PO PRN ×2 (00:09→22:10)
[2019-08-16] MEDS: ALBUTEROL SULF 2.5 MG/0.5ML(0.5%) NEB SOLN NEB SCH ×4 (00:18→19:23)
[2019-08-16 05:00] VITALS: BP 117/65
[2019-08-16] MEDS: SUCRALFATE 1 GM/10 ML ORAL SUSP PO SCH ×4 (06:28→21:54)
[2019-08-16 09:00] VITALS: BP 120/69
[2019-08-16] MEDS: FAMOTIDINE 20 MG TAB PO SCH (10:00)
[2019-08-16] MEDS: CARVEDILOL 3.125 MG TAB PO SCH ×2 (10:00→21:54)
[2019-08-16] MEDS: PANTOPRAZOLE 40 MG TAB PO SCH ×2 (10:00→21:54)
[2019-08-16] MEDS: NIFEdipine ER 30 MG TAB PO SCH (10:00)
[2019-08-16] MEDS: ASPirin 81 mg TAB PO SCH (10:00)
[2019-08-16] MEDS: LISINOPRIL 5 MG TAB PO SCH ×2 (10:00→21:54)
--- NOTE | 2019-08-16 10:00 | NUR ---
1000 MEDICATIONS HELD DUE TO PATIENT NPO FOR SCHEDULED EGD PROCEDURE
--- NOTE | 2019-08-16 10:45 | NUR ---
PATIENT OFF UNIT TO PRE OP. REPORT GIVEN TO SHARRON IQBAL
[2019-08-16] MEDS ORDERED: MIDAZOLAM HCL 1MG/1ML-2 ML VIAL ONE (11:37)
[2019-08-16] MEDS ORDERED: fentaNYL CITRATE 100 MCG/2 ML VL ONE (11:37)
[2019-08-16] MEDS ORDERED: PROPOFOL 10 MG/ML 20 ML IV ONE (11:38)
[2019-08-16] MEDS ORDERED: ONDANSETRON HCL 4 MG/2 ML VIAL ONE (11:38)
--- NOTE | 2019-08-16 13:40 | NUR ---
OR REPORT POST OP REPORT CALLED IN BY ADILENE IQBAL.
--- NOTE | 2019-08-16 14:22 | NUR ---
DR HERZOG PER DR HERZOG CALL HIM WHEN EGD COMPLETE UPDATED DR HERZOG ON PATIENT STATUS AND EGD REPORT NEW ORDERS RECEIVED, READ BACK AND VERIFIED
--- NOTE | 2019-08-16 15:49 | NUR ---
I spoke with Dr. Ruby Horowitz regarding the plan of care for this patient. Per Dr. Horowitz, he will discharge patient tomorrow pending the results of the bloodwork.
[2019-08-16 17:00] VITALS: BP 150/76
[2019-08-16 18:22] VITALS: BP 142/80
[2019-08-16 21:35] VITALS: BP 105/67
[2019-08-16] MEDS: ATORVASTATIN 20 MG TAB PO SCH (21:54)
[2019-08-16 23:02] VITALS: BP 105/67
[2019-08-17] MEDS: ALBUTEROL SULF 2.5 MG/0.5ML(0.5%) NEB SOLN NEB SCH ×3 (00:01→12:03)
[2019-08-17] MEDS ORDERED: SODIUM CHLORIDE 0.9 % NEB SOLN 3ML NEB ONE ×2 (05:24→10:42)
[2019-08-17 05:39] VITALS: BP 119/64
[2019-08-17 06:40] LABS: Basophils # (auto) 0 10 ^3/uL (0-0.2); Basophils % (auto) 0.7 % (0.0-2.0); Eosinophils # (auto) 0.3 10 ^3/uL (0-0.8); Eosinophils % (auto) 5.9 % (0.0-7.0); Hematocrit 31.1 % (36.0-46.0); Hemoglobin 10.5 g/dL (12.2-16.2); Lymphocytes # (auto) 1.7 10 ^3/uL (0.4-5.4); Lymphocytes % (auto) 38.4 % (10.0-50.0); Mean Corpuscular Hemoglobin 33.4 pg (28.0-32.0); Mean Corpuscular Hgb Conc. 33.8 g/dL (32.0-36.0); Mean Corpuscular Volume 98.8 fL (80.0-100.0); Monocytes # (auto) 0.6 10 ^3/uL (0-1.3); Monocytes % (auto) 12.5 % (0.0-12.0); Neutrophils # (auto) 1.9 10 ^3/uL (1.6-8.6); Neutrophils % (auto) 42.5 % (37.0-80.0); Nucleated Red Blood Cells % 0.1 %; Platelet Count (auto) 87 10^3/uL (140-450); Red Blood Cells 3.15 10^6/uL (4.0-5.20); Red Cell Distribution Width 14.8 % (11.8-14.3); White Blood Cell 4.5 10^3/uL (4.4-10.8)
[2019-08-17] MEDS: SUCRALFATE 1 GM/10 ML ORAL SUSP PO SCH (06:40)
--- NOTE | 2019-08-17 07:30 | NUR ---
Opening Shift Note RECEIVED REPORT FROM NOC RN. Assumed care of patient, awake and alert. No S/S of distress/SOB or pain. BED IN LOWEST, LOCKED POSITION WITH SIDERAILS UP x2 AND CALL LIGHT WITHIN REACH. Instructed on POC and to call for assist PRN, will continue to monitor for changes Q1hr and PRN.
[2019-08-17 09:12] VITALS: BP 132/62
[2019-08-17] MEDS: FAMOTIDINE 20 MG TAB PO SCH (09:56)
[2019-08-17] MEDS: PANTOPRAZOLE 40 MG TAB PO SCH (09:56)
[2019-08-17] MEDS: NIFEdipine ER 30 MG TAB PO SCH (09:57)
[2019-08-17] MEDS: ASPirin 81 mg TAB PO SCH (09:57)
[2019-08-17] MEDS: LISINOPRIL 5 MG TAB PO SCH (09:57)
[2019-08-17] MEDS: CARVEDILOL 3.125 MG TAB PO SCH (09:57)
[2019-08-17] MEDS: ACETAMINOPHEN 325 MG TAB PO PRN (10:03)
--- NOTE | 2019-08-17 10:29 | NUR ---
DR. Duc HERZOG AT BEDSIDE.
[2019-08-17 13:00] VITALS: BP 124/67
== END 2019-08-17 14:14 | disposition home or self-care (01) | DRG 380 ==
LOC: ER 15:59 → TELE 16:00 → TELE-EAST 22:47
PROVIDERS: ADMIT Nurse Practitioner; ATTEND Family Medicine
PROC: 0DB68ZX Excision of Stomach, Via Natural or Artificial Opening Endoscopic, Diagnostic (ICD-10-PCS; principal; 2019-08-16 12:45)
DX: K28.9 Gastrojejunal ulcer, unspecified as acute or chronic, without hemorrhage or perforation (principal); I21.A1 Myocardial infarction type 2; J44.1 Chronic obstructive pulmonary disease with (acute) exacerbation; R18.8 Other ascites; K29.70 Gastritis, unspecified, without bleeding; R79.89 Other specified abnormal findings of blood chemistry; I16.0 Hypertensive urgency; I25.10 Atherosclerotic heart disease of native coronary artery without angina pectoris; K21.9 Gastro-esophageal reflux disease without esophagitis; E78.00 Pure hypercholesterolemia, unspecified; E66.9 Obesity, unspecified; F32.9 Major depressive disorder, single episode, unspecified; G62.9 Polyneuropathy, unspecified; I50.9 Heart failure, unspecified; I11.0 Hypertensive heart disease with heart failure; E87.6 Hypokalemia; E78.5 Hyperlipidemia, unspecified; I25.2 Old myocardial infarction; Z95.5 Presence of coronary angioplasty implant and graft; Z79.82 Long term (current) use of aspirin; Z87.440 Personal history of urinary (tract) infections; Z90.49 Acquired absence of other specified parts of digestive tract; Z82.49 Family history of ischemic heart disease and other diseases of the circulatory system; Z91.041 Radiographic dye allergy status; Z88.5 Allergy status to narcotic agent; Z91.013 Allergy to seafood; Z79.899 Other long term (current) drug therapy; Z68.32 Body mass index [BMI] 32.0-32.9, adult; Z82.3 Family history of stroke; Z87.11 Personal history of peptic ulcer disease; Z98.84 Bariatric surgery status; I70.0 Atherosclerosis of aorta
CPT/HCPCS: 36415; 43239; 71045; 74176; 80048; 80053; 82565; 83735; 83880; 84132; 84484; 85025; 85610; 85730; 93005; 94640; 96361; 96374; 96375; 97116; 97163; 97530; G0378; J2250; J2405; J2704

== ENCOUNTER → 2019-08-30 | Outpatient (CLI) | payer OTHER ==
[~2019-08-30] MED LIST changes: +ALBU108A5 IN; -ASPI325T4 PO; -ATOR40TA52 PO; -ESCI10TA53 PO; +ESCI20TA51 PO; -NIFE1TAB31 PO; -NITR1CAP23 PO; -PANT1INJ3 PO; +SUCR1TAB PO; +TIOT1AER2 IN; -VANC125PO PO; +[UNRECOGNIZED DRUG - CODE] PO
== END | disposition home or self-care (01) ==
LOC: LAB 14:30
PROVIDERS: ATTEND Internal Medicine
DX: R18.8 Other ascites (principal); R53.1 Weakness
CPT/HCPCS: 36415; 82140; 82550; 87086

== ENCOUNTER 2019-09-26 10:41 | Inpatient (IN) | payer OTHER ==
[~2019-09-26] VITALS: Ht 162.6 cm; Wt 72.7 kg
[~2019-09-26 10:41] MED LIST changes: -ESCI20TA51 PO; -FAM20T PO; +FAMO20TA10 PO; -SUCR1TAB PO; -TIOT1AER2 IN
[2019-09-26 11:48] LABS: Basophils # (auto) 0.1 10 ^3/uL (0-0.2); Basophils % (auto) 1.9 % (0.0-2.0); Eosinophils # (auto) 0.2 10 ^3/uL (0-0.8); Eosinophils % (auto) 3.8 % (0.0-7.0); Hematocrit 37.5 % (36.0-46.0); Hemoglobin 12.5 g/dL (12.2-16.2); Lymphocytes # (auto) 1.4 10 ^3/uL (0.4-5.4); Mean Corpuscular Hemoglobin 32.5 pg (28.0-32.0); Mean Corpuscular Hgb Conc. 33.3 g/dL (32.0-36.0); Mean Corpuscular Volume 97.5 fL (80.0-100.0); Monocytes # (auto) 0.8 10 ^3/uL (0-1.3); Monocytes % (auto) 11.6 % (0.0-12.0); Neutrophils % (auto) 60.7 % (37.0-80.0); Nucleated Red Blood Cells % 0.1 %; Platelet Count (auto) 176 10^3/uL (140-450); Red Blood Cells 3.84 10^6/uL (4.0-5.20); Red Cell Distribution Width 15.4 % (11.8-14.3); White Blood Cell 6.5 10^3/uL (4.4-10.8)
[2019-09-26 12:04] LABS: INR 1.29 (0.9-1.15); Partial Thromboplastin Time 25.6 sec (23.64-32.05)
[2019-09-26 12:09] LABS: Albumin 2.1 g/dL (3.4-5.0); Calcium 7.9 mg/dL (8.5-10.1); Potassium 3.4 mmol/L (3.5-5.1)
[2019-09-26 12:15] LABS: BUN/Creatinine Ratio 11.1; Bilirubin, Total 0.8 mg/dL (0.2-1.0); Total Protein 6.1 g/dL (6.4-8.2)
[2019-09-26] MEDS ORDERED: SOD CHL 0.9%/ KCL 40MEQ 1,000 ML IV ONE (14:15)
[2019-09-26] MEDS ORDERED: NITROGLYCERIN 0.4 MG SL TAB SL PRN (14:15)
[2019-09-26 14:49] LABS: CRP High Sensitivity 0.07 mg/dL (< 0.3)
[2019-09-26] MEDS: metroNIDAZOLE 500MG/100ML 100 ML IV SCH ×2 (14:52→22:19)
[2019-09-26 15:47] LABS: Carcinoembryonic Antigen 3.04 ng/mL (<5.0 OR =); Ferritin 188.6 ng/mL (10-322)
--- NOTE | 2019-09-26 16:30 | NUR ---
Telemetry admit from ER HENOK DAIGLE admitted to Telemetry unit after SBAR received. Patient oriented to SUKUMAR LEDESMA, primary RN, unit, room, bed, and unit policies regarding patient care and visiting hours. Patient now on continuous telemetry monitoring, tele box # 58 and telemetry reading on arrival to unit is . Patient placed on bedside oxygen, weighed by bed scale and encouraged to call if they need something. All questions and concerns addressed, patient verbalized understanding.
--- NOTE | 2019-09-26 16:41 | NUR ---
MRSA SENT TO LAB.
[2019-09-26 16:44] VITALS: BP 159/83
[2019-09-26 17:40] VITALS: BP 125/57
--- NOTE | 2019-09-26 17:42 | NUR ---
Hospitalist paged re patient wants Phenergan for nausea, awaiting to call back.
--- NOTE | 2019-09-26 17:47 | NUR ---
Received a call from Richie, with new orders, noted and carried it out.
[2019-09-26] MEDS ORDERED: PROMETHAZINE HCL 25 MG/ML 1ML IV PRN (18:00)
--- NOTE | 2019-09-26 19:00 | NUR ---
Received report from the Day Shift RASHEED Duran.
--- NOTE | 2019-09-26 20:00 | NUR ---
Complete assessment done. Pt. in bed resting, calm and sleeping, easily arousable, oriented x 4 ,follows commands. Pt. in Room Air, breathing regular and unlabored with 02 sat. of 97 % in Room Air, lungs are clear bilaterally. Pt. denies pain and denies chest pain. Pt. on Tele # 52 SR @ the monitor @ the 70's. Abdomen rounded, soft and non-tender. No s/s of N/V, no s/s of diarrhea or no s/s of bloody stools @ this time. General body with mild weakness and on bedrest, assisted to the BSC with the help of nsg. staff. Pt. IVF of NS with 40 meq. KCL @ 100 ml./hr. continuous connected to the LFA G# 20. Keep patent and intact. No s/s of IV infiltration. Generally skin intact. Pt. can turn self, with minimal to mod. assist to the BSC and with ADL's. Keep pt. safe and payroll administrator bed. Call-light within reach.
[2019-09-26 22:00] VITALS: BP 107/59
[2019-09-26] MEDS ORDERED: metroNIDAZOLE 500MG/100ML 100 ML IV SCH (22:00)
--- NOTE | 2019-09-26 22:19 | NUR ---
Med. as scheduled given. Pt. provided explanation to the use and mechanism of action of the meds. given. Pt. verbalized partial understanding, will reenforce health teaching.
[2019-09-26] MEDS: ATORVASTATIN 20 MG TAB PO SCH (22:20)
[2019-09-26] MEDS: traZODone HCL 50 MG TAB PO SCH (22:20)
[2019-09-26] MEDS: FAMOTIDINE 20 MG TAB PO SCH (22:20)
[2019-09-26] MEDS: CARVEDILOL 3.125 MG TAB PO SCH (22:20)
[2019-09-26] MEDS: LISINOPRIL 5 MG TAB PO SCH (22:21)
--- NOTE | 2019-09-27 00:30 | NUR ---
Pt. sleeping undisturbed. SR @ the tele # 52 @ 70's , no s/s of pain or discomfort. No verbalization of pain. Pt. calm and quiet. Maintained a safe and tranquil environment. Call-light within pt. reach. IVf of NS + 40 meq. KCL continuously running @ 100 ml./hr.
--- NOTE | 2019-09-27 02:00 | NUR ---
Pt. sleeping well. No verbalization of pain. SR @ the Telemetry.
[2019-09-27 05:00] VITALS: BP 129/79
[2019-09-27 06:39] LABS: Basophils # (auto) 0.1 10 ^3/uL (0-0.2); Basophils % (auto) 1.2 % (0.0-2.0); Eosinophils # (auto) 0.3 10 ^3/uL (0-0.8); Eosinophils % (auto) 4.8 % (0.0-7.0); Hematocrit 37.2 % (36.0-46.0); Hemoglobin 12.6 g/dL (12.2-16.2); Lymphocytes # (auto) 1.7 10 ^3/uL (0.4-5.4); Lymphocytes % (auto) 26.1 % (10.0-50.0); Mean Corpuscular Hemoglobin 33.3 pg (28.0-32.0); Mean Corpuscular Hgb Conc. 33.9 g/dL (32.0-36.0); Monocytes # (auto) 0.6 10 ^3/uL (0-1.3); Monocytes % (auto) 9.9 % (0.0-12.0); Neutrophils # (auto) 3.8 10 ^3/uL (1.6-8.6); Nucleated Red Blood Cells % 0.1 %; Platelet Count (auto) 168 10^3/uL (140-450); Red Blood Cells 3.79 10^6/uL (4.0-5.20); Red Cell Distribution Width 15.2 % (11.8-14.3); White Blood Cell 6.5 10^3/uL (4.4-10.8)
[2019-09-27] MEDS: metroNIDAZOLE 500MG/100ML 100 ML IV SCH ×4 (06:43→22:00)
[2019-09-27 06:59] LABS: Calcium 7.7 mg/dL (8.5-10.1); Potassium 3.6 mmol/L (3.5-5.1)
[2019-09-27 07:04] LABS: BUN/Creatinine Ratio 10.6; Bilirubin, Total 0.7 mg/dL (0.2-1.0); Total Protein 5.8 g/dL (6.4-8.2)
[2019-09-27] MEDS: cefTRIAXone 1GM/50ML D5W 50 ML IV SCH (08:54)
[2019-09-27] MEDS: FAMOTIDINE 20 MG TAB PO SCH (08:55)
[2019-09-27] MEDS: CITALOPRAM HYDROBR 20 MG TAB PO SCH (08:55)
[2019-09-27] MEDS: LISINOPRIL 5 MG TAB PO SCH ×2 (08:56→21:47)
[2019-09-27] MEDS: CARVEDILOL 3.125 MG TAB PO SCH ×2 (08:56→21:45)
[2019-09-27 09:00] VITALS: BP 126/77
[2019-09-27] MEDS ORDERED: CEFTRIAXONE SODIUM 2 GM in D5W 5% 50 ML IV SCH (10:00)
[2019-09-27] MEDS ORDERED: FLORASTOR (S. BOULARDII) 250 MG CAP PO SCH (10:00)
--- NOTE | 2019-09-27 10:08 | NUR ---
Per Joanna IQBAL patient cannot have a procedure done today due to last plavix on 09/25, will notify hospitalist.
--- NOTE | 2019-09-27 10:30 | NUR ---
Stool for c-diff sent to lab.
[2019-09-27] MEDS: PANTOPRAZOLE 40 MG TAB PO SCH ×2 (11:53→21:46)
[2019-09-27] MEDS ORDERED: SUCR1TAB PO (12:07)
[2019-09-27] MEDS ORDERED: ESCI20TA51 PO (12:07)
[2019-09-27] MEDS ORDERED: TIOT1AER2 IN (12:13)
[2019-09-27 13:00] VITALS: BP 140/70
--- NOTE | 2019-09-27 14:19 | NUR ---
Dr. Lam paged regarding medication verification. Awaiting to call back.
--- NOTE | 2019-09-27 15:20 | NUR ---
Received a call from Dr. Lam stated patient have to continue with Plavix.
--- NOTE | 2019-09-27 15:47 | NUR ---
C-diff positive received a report from Dr. Genaro Fowler.
[2019-09-27 16:11] VITALS: BP 121/75
--- NOTE | 2019-09-27 16:22 | NUR ---
assessment ss consult dc planning for safe dc plan Patient is a 69 year old female who is alert and oriented. Patients cognitive abilities are intact. Prior to admission patient lived home alone and functioned with assistance. Patient informed me she wants to return home due to her dogs. Patient informed me her brother will transport her home. Patient informed me she needs assistance with cooking and dressing. PAtient informed me her niece is her caregiver. Patient does have a fww and a cane for home use. I have offered patient resources for private pay caregivers. Patient refused resources. I informed patient she has a right to speak to a social economist regarding all care. I informed patient she has a right to participate in any and all discharge planning. Patient has a POA and advanced directive. Patient verbalized understanding and agreed to discharge plan. Addendum: 09/27/19 at 1625 by Jacqueline HOUSE Amended: Links added.
--- NOTE | 2019-09-27 16:34 | NUR ---
Dr. Lam paged again, awaiting to call back.
[2019-09-27 16:44] VITALS: BP 136/70
--- NOTE | 2019-09-27 16:45 | NUR ---
Informed Sammie (CN) regarding patient has positive c-diff.
--- NOTE | 2019-09-27 16:50 | NUR ---
Informed Dr. Lam re IV was removed, stated patient does not need IV. Noted and carried it out.
--- NOTE | 2019-09-27 16:50 | NUR ---
Received a call from Dr. Lam with new orders, noted and carried it out. D/C on hold. Patient notified.
--- NOTE | 2019-09-27 17:47 | NUR ---
Informed Juanito (Next of Kin ) regarding patient will stay one more tonight.
[2019-09-27] MEDS: VANCOMYCIN HCL 125MG/5ML ORAL SOL PO SCH ×2 (17:55→21:42)
--- NOTE | 2019-09-27 19:01 | NUR ---
Received report from the Day Shift RASHEED Duran. Pt. in bed resting and sleeping, easily arousable by name.
--- NOTE | 2019-09-27 20:00 | NUR ---
Assessment done and completed. Pt. in bed resting, alert, awake, oriented x 4, in Room Air, no s/s of sob or dyspnea. Lungs are clear bilaterally, denies pain and denies chest pain, able to turn self and ambulates to the BR. Pt. with BRP with minimal or standby assist with ADL's. Pt. ambulates with use of cane. No IV access, refused IV access and MD was made aware during the Day Shift. Pt. with p.o. antibiotic due for tonight. Maintained pt. safety and keep environment quiet and free from unnecessary noise. Call-light within pt.'s reach.
--- NOTE | 2019-09-27 21:42 | NUR ---
Meds. as schedule given to the pt. Pt. made aware of the use and benefits of the scheduled meds. given or administered. Pt. verbalized understanding.
[2019-09-27] MEDS: traZODone HCL 50 MG TAB PO SCH (21:45)
[2019-09-27] MEDS: FLORASTOR (S. BOULARDII) 250 MG CAP PO SCH (21:46)
[2019-09-27] MEDS: ATORVASTATIN 20 MG TAB PO SCH (21:46)
[2019-09-27 22:00] VITALS: BP 150/78
--- NOTE | 2019-09-27 22:30 | NUR ---
Pt. provided partial sponge bath. Changed all bed linens and chux. Keep pt. clean, dry and sorting supervisor bed.
--- NOTE | 2019-09-27 23:30 | NUR ---
Pt. sleeping well. SR @ the 80's to 90's @ the monitor. No s/s of pain or discomfort. Keep pt. safe and comb winder bed. Call-light within reach.
--- NOTE | 2019-09-28 02:00 | NUR ---
Pt. sleeping undisturbed. Maintained pt. safety and a quiet environment. SR @ the Tele # 52.
[2019-09-28 05:00] VITALS: BP 149/69
[2019-09-28] MEDS: metroNIDAZOLE 500MG/100ML 100 ML IV SCH (05:48)
--- NOTE | 2019-09-28 05:48 | NUR ---
Unable to give IV Flagyl due to pt. refusal to start IV. Pt. has been inserted IV during the Day shift yesterday but the pt. is hardstick and day Shift tried to stick her x 4-5 times yesterday. No IV access. Pt. refused to be stick again. aware since yesterday. Attending [employer] GATHERER and [facility] were aware yesterday and was notified by the Day RN. Pt. refused IV access today.
[2019-09-28] MEDS: VANCOMYCIN HCL 125MG/5ML ORAL SOL PO SCH ×4 (05:49→22:00)
--- NOTE | 2019-09-28 05:49 | NUR ---
Vancomycin Po. med. given @ this time. Pt. made aware that this med. is an antibiotic. Pt. verbalized understanding.
--- NOTE | 2019-09-28 06:00 | NUR ---
Pt. denies pain and resting pain free, ready for breakfast. Pt. with BRP with minimal to mod. assist. Pt. uses the cane to ambulate to the BR.
[2019-09-28 08:00] VITALS: BP 118/70
--- NOTE | 2019-09-28 08:00 | NUR ---
OPENING SHIFT NOTE ASSUMED CARE OF PATIENT AWAKE AND ALERT. NO S/S OF DISTRESS NOTED. PATIENT HAS NO IV ACCESS, HOSPITALIST AWARE. PATIENT HAS A COMPLAINT OF 6/10 ABDOMINAL PAIN. PATIENT STATES SHE HAD A SMALL FORMED BOWEL MOVEMENT THIS MORNING AND NOTICED "BROWNISH-REDDISH BLOOD". PATIENT UPDATED ON POC FOR THE DAY AND ALL QUESTIONS ANSWERED. BED IS IN LOWEST, LOCKED POSITION WITH SIDE RAILS UP X2 AND CALL LIGHT WITHIN REACH.
[2019-09-28 09:00] VITALS: BP 124/62
[2019-09-28] MEDS: cefTRIAXone 1GM/50ML D5W 50 ML IV SCH (09:00)
[2019-09-28] MEDS: FLORASTOR (S. BOULARDII) 250 MG CAP PO SCH ×2 (09:32→21:59)
[2019-09-28] MEDS: PANTOPRAZOLE 40 MG TAB PO SCH ×2 (09:32→21:59)
[2019-09-28] MEDS: CITALOPRAM HYDROBR 20 MG TAB PO SCH (09:32)
[2019-09-28] MEDS: LISINOPRIL 5 MG TAB PO SCH ×2 (09:33→21:59)
[2019-09-28] MEDS: CARVEDILOL 3.125 MG TAB PO SCH ×2 (09:33→21:59)
--- NOTE | 2019-09-28 09:50 | NUR ---
AT BEDSIDE DR VELAZQUEZ AT BEDSIDE TO REEVALUATE PATIENT FOR COMPLAINTS OF NAUSEA AND ABD PAIN.
[2019-09-28] MEDS ORDERED: PROMETHAZINE HCL 6.25 MG/5 ML ORAL SYRUP PO PRN (10:00)
[2019-09-28] MEDS ORDERED: GOLYTELY 4L KIT PO ONE (12:00)
--- NOTE | 2019-09-28 13:00 | NUR ---
PAGED PAGED DR FUNEZ FOR ORDERS. AWAITING CALL BACK.
[2019-09-28 14:00] VITALS: BP 119/63
--- NOTE | 2019-09-28 14:05 | NUR ---
PAGED DR FUNEZ REPAGED FOR ORDERS. AWAITING CALL BACK.
[2019-09-28] MEDS: metroNIDAZOLE 500 MG TAB PO SCH ×2 (15:36→22:00)
--- NOTE | 2019-09-28 19:30 | NUR ---
Opening Shift Note Assumed care of patient. Patient is awake and alert. No S/S of distress/SOB or pain. Instructed on POC and to call for assist PRN, will continue to monitor for changes Q1hr and PRN. Bed locked in lowest position and bed rails up x2. Call light within reach.
[2019-09-28] MEDS: ATORVASTATIN 20 MG TAB PO SCH (21:58)
[2019-09-28] MEDS: GABAPENTIN 100 MG CAP PO SCH (21:59)
[2019-09-28] MEDS: traZODone HCL 50 MG TAB PO SCH (21:59)
[2019-09-28 22:00] VITALS: BP 119/60
[2019-09-29 02:00] VITALS: BP 119/59
[2019-09-29 05:00] VITALS: BP 115/59
[2019-09-29] MEDS: metroNIDAZOLE 500 MG TAB PO SCH (06:08)
[2019-09-29] MEDS: VANCOMYCIN HCL 125MG/5ML ORAL SOL PO SCH ×2 (06:08→13:17)
[2019-09-29 07:16] LABS: Basophils # (auto) 0 10 ^3/uL (0-0.2); Basophils % (auto) 0.7 % (0.0-2.0); Eosinophils # (auto) 0.2 10 ^3/uL (0-0.8); Eosinophils % (auto) 4.6 % (0.0-7.0); Hematocrit 33.6 % (36.0-46.0); Hemoglobin 11.3 g/dL (12.2-16.2); Lymphocytes # (auto) 1.5 10 ^3/uL (0.4-5.4); Lymphocytes % (auto) 31.6 % (10.0-50.0); Mean Corpuscular Hemoglobin 32.8 pg (28.0-32.0); Mean Corpuscular Hgb Conc. 33.7 g/dL (32.0-36.0); Mean Corpuscular Volume 97.4 fL (80.0-100.0); Monocytes # (auto) 0.6 10 ^3/uL (0-1.3); Monocytes % (auto) 12.1 % (0.0-12.0); Neutrophils # (auto) 2.4 10 ^3/uL (1.6-8.6); Nucleated Red Blood Cells % 0.3 %; Platelet Count (auto) 121 10^3/uL (140-450); Red Blood Cells 3.44 10^6/uL (4.0-5.20); Red Cell Distribution Width 15.5 % (11.8-14.3); White Blood Cell 4.8 10^3/uL (4.4-10.8)
[2019-09-29 07:36] LABS: Albumin 1.9 g/dL (3.4-5.0); BUN/Creatinine Ratio 8.3; Calcium 7.9 mg/dL (8.5-10.1); Magnesium 1.9 mg/dL (1.6-2.6)
[2019-09-29 07:39] LABS: Bilirubin, Total 0.6 mg/dL (0.2-1.0); Total Protein 5.2 g/dL (6.4-8.2)
--- NOTE | 2019-09-29 08:00 | NUR ---
OPENING SHIFT NOTE ASSUMED CARE OF PATIENT AWAKE AND ALERT. NO S/S OF DISTRESS NOTED OR COMPLAINTS OF PAIN.F PATIENT UPDATED ON POC FOR THE DAY AND ALL QUESTIONS ANSWERED. BED IS IN LOWEST, LOCKED POSITION WITH SIDE RAILS UP X2 AND CALL LIGHT WITHIN REACH. WILL CONTINUE TO MONITOR Q1H AND PRN.
[2019-09-29 09:00] VITALS: BP 109/59
[2019-09-29] MEDS: cefTRIAXone 1GM/50ML D5W 50 ML IV SCH (09:00)
[2019-09-29] MEDS: CITALOPRAM HYDROBR 20 MG TAB PO SCH (09:55)
[2019-09-29] MEDS: CARVEDILOL 3.125 MG TAB PO SCH (09:55)
[2019-09-29] MEDS: FLORASTOR (S. BOULARDII) 250 MG CAP PO SCH (09:55)
[2019-09-29] MEDS: LISINOPRIL 5 MG TAB PO SCH (09:56)
[2019-09-29] MEDS: PANTOPRAZOLE 40 MG TAB PO SCH (09:56)
[2019-09-29] MEDS: GABAPENTIN 100 MG CAP PO SCH (09:56)
[2019-09-29] MEDS ORDERED: POTASSIUM CHL 20 Meq TABLET PO ONE (12:15)
[2019-09-29 13:00] VITALS: BP 111/60
--- NOTE | 2019-09-29 13:38 | NUR ---
Discharge instructions given as ordered. Encourage to follow up with PMD as instructed. All questions and concerns addressed. Patient verbalized understanding. IV removed with catheter intact, pressure dressing applied. Telemetry unit returned to ICU. Patient taken to vehicle via wheelchair with all personal belongings, accompanied by staff. No distress noted at time of departure.
== END 2019-09-29 13:45 | disposition home or self-care (01) | DRG 372 ==
LOC: ER 10:41 → TELE 10:42 → TELE-WESTW 15:25
PROVIDERS: ADMIT Nurse Practitioner Acute Care; ATTEND Family Medicine
DX: A04.72 Enterocolitis due to Clostridium difficile, not specified as recurrent (principal); R18.8 Other ascites; E44.0 Moderate protein-calorie malnutrition; K64.9 Unspecified hemorrhoids; D64.9 Anemia, unspecified; I25.10 Atherosclerotic heart disease of native coronary artery without angina pectoris; R91.1 Solitary pulmonary nodule; E87.6 Hypokalemia; F32.9 Major depressive disorder, single episode, unspecified; J44.9 Chronic obstructive pulmonary disease, unspecified; I50.9 Heart failure, unspecified; I11.0 Hypertensive heart disease with heart failure; K76.0 Fatty (change of) liver, not elsewhere classified; E78.5 Hyperlipidemia, unspecified; K21.9 Gastro-esophageal reflux disease without esophagitis; Z95.5 Presence of coronary angioplasty implant and graft; Z68.27 Body mass index [BMI] 27.0-27.9, adult; Z91.041 Radiographic dye allergy status; Z82.3 Family history of stroke; Z88.5 Allergy status to narcotic agent; Z91.013 Allergy to seafood; I25.2 Old myocardial infarction; Z87.11 Personal history of peptic ulcer disease; Z87.440 Personal history of urinary (tract) infections; Z90.49 Acquired absence of other specified parts of digestive tract; Z82.49 Family history of ischemic heart disease and other diseases of the circulatory system; Z79.02 Long term (current) use of antithrombotics/antiplatelets; Z79.899 Other long term (current) drug therapy; Z98.84 Bariatric surgery status
CPT/HCPCS: 36415; 71045; 74176; 80053; 82140; 82270; 82378; 82728; 83615; 83735; 84484; 85025; 85610; 85652; 85730; 86141; 86677; 87045; 87081; 87427; 87493; 93005; G0378; J0696; J3490